=== PATIENT | female | born 1985 | race Caucasian/White ===

== ENCOUNTER 2016-10-05 09:58 | Emergency (ER) | payer MEDICAID, OTHER ==
[2016-10-05 11:30] LABS: DIFF SLIDE NUMBER 206; MEAN CORPUSCULAR HEMOGLOBIN 29.4 pg (27.0-33.0); MEAN CORPUSCULAR HGB CONC 33.7 g/dl (32.0-36.5); MEAN CORPUSCULAR VOLUME 87.4 fl (80.0-96.0); PLATELET COUNT, AUTOMATED 314 k/mm3 (150-450); RED CELL DISTRIBUTION WIDTH 13.5 % (11.5-14.5); WHITE BLOOD COUNT 13.5 K/mm3 (4.0-10.0)
[2016-10-05 11:42] LABS: CONTROL LINE MONO INT CTR LINE PRESENT
[2016-10-05 11:47] LABS: ALBUMIN 3.9 GM/DL (3.2-5.2); ALKALINE PHOSPHATASE 72 U/L (45-117); ALT/SGPT 13 U/L (12-78); ANION GAP 7 MEQ/L (8-16); AST/SGOT 8 U/L (15-37); BILIRUBIN,TOTAL 0.4 MG/DL (0.2-1.0); BLOOD UREA NITROGEN 13 MG/DL (7-18); CARBON DIOXIDE LEVEL 29 MEQ/L (21-32); CHLORIDE LEVEL 107 MEQ/L (98-107); CREATININE FOR GFR 0.85 MG/DL (0.55-1.02); GLOMERULAR FILTRATION RATE > 60.0 (>60); GLUCOSE, FASTING 91 MG/DL (70-105); POTASSIUM SERUM 4.2 MEQ/L (3.5-5.1); SODIUM LEVEL 143 MEQ/L (136-145); TOTAL PROTEIN 6.9 GM/DL (6.4-8.2)
[2016-10-05] MEDS ORDERED: ISOVUE-370 76% 100ML VIAL (Q9967) As Ordered ONE (11:49)
[2016-10-05 12:03] LABS: BASOPHILS 1 % (0-4); EOSINOPHILS 1 % (0-5)
[2016-10-05] MEDS ORDERED: AZITHROMYCIN 250 MG TAB As Ordered ONE (12:58)
--- NOTE | 2016-10-05 13:06 | EDDOCDS ---
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 Patient reports has been there hs1 since laryngitis possibly 3 months ago. Patient states increased cotton mouth and needing to drink a lot more. Adult Sepsis Screening: The patient does not have new or worsening altered mentation. Patient's respiratory rate is less than 22. Systolic blood pressure is greater than 100. Patient has a qSOFA score of 0- Negative Sepsis Screen. Suicide/Homicide risk assessment- the patient denies having any suicidal and/or homicidal ideations and does not present with any other emotional, behavioral or mental health complaints. 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 Transition of care: patient was not received from another setting of care. 10:03 Acuity: GABE Level 3 hs1 10:03 Method Of Arrival: Walkin/Carried/Asstd hs1 Triage Assessment: 10:05 General: Appears in no apparent distress, Behavior is appropriate for age, cooperative. hs1 Pain: Denies pain. HIV screening NA for this visit Offered previously. EENT: Denies difficulty swallowing. Respiratory: Airway is patent Respiratory effort is even, unlabored, Respiratory pattern is regular, symmetrical. Derm: Swollen area noted on right submandibular area. 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 none - PMHx: none; - PSHx: Appendectomy; - Social history: Smoking status: Patient uses tobacco products, heavy tobacco smoker. No barriers to communication noted, The patient speaks fluent Micronesian, Speaks appropriately for age. - Family history: Not pertinent. - : The pt / caregiver states he / she is not on anticoagulants. Home medication list is obtained from the patient. - Exposure Risk Screening:: None identified. Screenin:15 Screening information is obtained from the patient. Fall risk: No risks identified. mcp Assistance ADL's: requires no assistance with activities of daily living. Abuse/DV Screen: The patient / caregiver reports he/she is: not in a situation that causes fear, pain or injury. Nutritional screening: No deficits noted. Advance Directives: There is no active DNR order. home support is adequate. Assessment: 11:15 General: Appears uncomfortable, Behavior is cooperative. Pain: Location: neck Pain mcp currently is 3 out of 10 on a pain scale. Neurological: No deficits noted. Respiratory: Airway is patent Respiratory effort is even, unlabored. Derm: Skin is pink, warm & dry. 12:10 Reassessment: Patient appears in no apparent distress at this time. Neurological: No kr3 deficits noted. Respiratory: Respiratory effort is even, unlabored. 13:04 General: Appears in no apparent distress, comfortable, Behavior is cooperative. Pain: mcp Denies pain. Neurological: No deficits noted. Respiratory: Airway is patent Respiratory effort is even, unlabored. Derm: Skin is pink, warm & dry. Vital Signs: 10:00 BP 112 / 68; Pulse 81; Resp 18; Temp 97.6(O); Pulse Ox 99% on R/A; Weight 74.84 kg (M); ct3 Height 5 ft. 3 in. (160.02 cm) (R); Pain 0/10; 13:01 BP 123 / 71; Pulse 54; Resp 18; Temp 97.8; Pulse Ox 99% ; Pain 10/10; jam1 10:00 Body Mass Index 29.23 (74.84 kg, 160.02 cm) ct3 Vitals: 10:00 Log In Time: October 05, 2016 at 09:57. ct3 11:11 Strep Screen is obtained and tested: Negative, a GATSNEG culture is ordered in [facility] and sent. ED Course: 09:59 Patient visited by Sandy Nava PCA. ct3 09:59 Celestino Redding is Private Physician. ct3 09:59 Patient moved to Waiting ct3 10:01 Patient moved to Pre RCE ct3 10:05 Triage Initiated hs1 10:43 Patient moved to Triage 2 hs1 10:45 [facility] ef1 10:45 Rochelle Donis MD is Attending Physician. ef1 10:46 Patient visited by Karol Rodriguez PA-C. ef1 11:00 Patient moved to I5 / rs6 11:15 The patient / caregiver is instructed regarding the plan of care and ED course. Patient mcp has correct armband on for positive identification. Placed in gown. Bed in low position. Call light in reach. 11:16 Patient visited by Amparo Self RN. [facility] 11:16 Inserted saline lock: 20 gauge in left antecubital area and blood collected. The mcp patient tolerated the procedure well. Labs drawn. (by ED staff). Sent per order to lab. 11:16 Monoscreen Sent. [facility] 11:16 Mumps Virus Igm Antibody Sent. [facility] 11:16 Mumps Virus Igg Antibody Sent. [facility] 11:16 Complete Comphrensive Metabolic Sent. [facility] 11:16 CBC with Diff Sent. [facility] 11:24 [facility] Payment Agreement was scanned into [employer] and attached to record. jp5 11:52 Patient visited by Karol Rodriguez PA-C. ef1 12:24 DIFFERENTIAL NO CHARGE Sent. kr3 12:43 Patient visited by Karol Rodriguez PA-C. ef1 12:56 Junior Castro is Referral Physician. ef1 13:05 Discontinued lock intact, bleeding controlled, pressure dressing applied, No mcp redness/swelling at site. No procedures done that require assistance. Administered Medications: 13:04 Drug: azithromycin 500 mg [azithromycin 250 mg tablet (2 tabs)] Route: PO; [facility] Order Results: Lab Order: CBC with Diff; SPEC'M 10/05/16 11:12 Test: WHITE BLOOD COUNT; Value: 13.5; Range: 4.0-10.0; Abnormal: Above high normal; Units: K/mm3; Status: F Test: RED BLOOD COUNT; Value: 5.23; Range: 4.00-5.40; Units: M/mm3; Status: F Test: HEMOGLOBIN; Value: 15.4; Range: 12.0-16.0; Units: g/dl; Status: F Test: HEMATOCRIT; Value: 45.7; Range: 36.0-47.0; Units: %; Status: F Test: MEAN CORPUSCULAR VOLUME; Value: 87.4; Range: 80.0-96.0; Units: fl; Status: F Test: MEAN CORPUSCULAR HEMOGLOBIN; Value: 29.4; Range: 27.0-33.0; Units: pg; Status: F Test: MEAN CORPUSCULAR HGB CONC; Value: 33.7; Range: 32.0-36.5; Units: g/dl; Status: F Test: RED CELL DISTRIBUTION WIDTH; Value: 13.5; Range: 11.5-14.5; Units: %; Status: F Test: PLATELET COUNT, AUTOMATED; Value: 314; Range: 150-450; Units: k/mm3; Status: F Test: NEUTROPHILS; Value: 70; Range: 35-75; Units: %; Status: F Test: LYMPHOCYTES; Value: 16; Range: 16-52; Units: %; Status: F Test: MONOCYTES; Value: 3; Range: 0-8; Units: %; Status: F Test: EOSINOPHILS; Value: 1; Range: 0-5; Units: %; Status: F Test: BASOPHILS; Value: 1; Range: 0-4; Units: %; Status: F Test: ATYPICAL LYMPH; Value: 9; Range: 0-5; Abnormal: Above high normal; Units: %; Status: F Test: RBC MORPHOLOGY; Value: NORMAL; Status: F Lab Order: Complete Comphrensive Metabolic; SPEC'M 10/05/16 11:12 Test: GLUCOSE, FASTING; Value: 91; Range: 70-105; Units: MG/DL; Status: F Test: BLOOD UREA NITROGEN; Value: 13; Range: 7-18; Units: MG/DL; Status: F Test: CREATININE FOR GFR; Value: 0.85; Range: 0.55-1.02; Units: MG/DL; Status: F Test: GLOMERULAR FILTRATION RATE; Value: > 60.0; Range: >60; Status: F Test: SODIUM LEVEL; Value: 143; Range: 136-145; Units: MEQ/L; Status: F Test: POTASSIUM SERUM; Value: 4.2; Range: 3.5-5.1; Units: MEQ/L; Status: F Test: CHLORIDE LEVEL; Value: 107; Range: 98-107; Units: MEQ/L; Status: F Test: CARBON DIOXIDE LEVEL; Value: 29; Range: 21-32; Units: MEQ/L; Status: F Test: ANION GAP; Value: 7; Range: 8-16; Abnormal: Below low normal; Units: MEQ/L; Status: F Test: CALCIUM LEVEL; Value: 9.0; Range: 8.5-10.1; Units: MG/DL; Status: F Test: AST/SGOT; Value: 8; Range: 15-37; Abnormal: Below low normal; Units: U/L; Status: F Test: ALT/SGPT; Value: 13; Range: 12-78; Units: U/L; Status: F Test: ALKALINE PHOSPHATASE; Value: 72; Range: 45-117; Units: U/L; Status: F Test: BILIRUBIN,TOTAL; Value: 0.4; Range: 0.2-1.0; Units: MG/DL; Status: F Test: TOTAL PROTEIN; Value: 6.9; Range: 6.4-8.2; Units: GM/DL; Status: F Test: ALBUMIN; Value: 3.9; Range: 3.2-5.2; Units: GM/DL; Status: F Test: ALBUMIN/GLOBULIN RATIO; Value: 1.30; Range: 1.00-1.93; Status: F Test Note: ; Units are mL/min/1.73 m2 Chronic Kidney Disease Staging per NKF: Stage I & II GFR >=60 Normal to Mildly Decreased Stage III GFR 30-59 Moderately Decreased Stage IV GFR 15-29 Severely Decreased Stage V GFR <15 Very Little GFR Left ESRD GFR <15 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 kr3 12:56 Discharge ordered by Provider. ef1 13:05 Discharge Assessment: Patient awake, alert and oriented x 3. No cognitive and/or mcp functional deficits noted. Patient verbalized understanding of disposition instructions. patient administered narcotics - no. The following High Risk Discharge criteria are identified: None. Discharged to home ambulatory. Condition: stable. Discharge instructions given to patient, Instructed on discharge instructions, follow up and referral plans. medication usage, Demonstrated understanding of instructions, medications, Pt was receptive of discharge instructions/ teaching. Prescriptions given X 2. Property sent home with patient. 13:05 Patient left the ED. [facility] Signatures: Amparo Self RN RN Lisa Machado, LABORER LIVESTOCK LABORER LIVESTOCK jam1 Tootie Joseph,RN RN kr3 Karol Rodriguez, PA-C PA-C ef1 Elvie Cordoba RN RN hs1 Sandy Nava, LABORER LIVESTOCK LABORER LIVESTOCK ct3 Edith Singh, LABORER LIVESTOCK LABORER LIVESTOCK rs6 Nano Harvey jp5 MTDD
--- NOTE | 2016-10-05 13:06 | EDDOCDS ---
Physician Documentation [facility] Name: Marga Trujillo Age: 31 yrs Sex: Female : 1985 Arrival Date: 10/05/2016 Time: 09:58 Bed I5 / M5 Private MD: Celestino Redding Disposition: 10/05/16 12:56 Discharged to Home/Self Care. 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 - Condition is Stable. - Prescriptions for Ibuprofen 800 mg Oral Tablet - take 1 tablet by ORAL route every 8 hours As needed take with food; 30 tablet. Zithromax 250 mg Oral Tablet - take 1 tablet by ORAL route once daily start tomorrow; 4 tablet. - Medication Reconciliation, Local Pharmacy Hours form. - Follow up: Junior Castro; When: 1 - 2 days; Reason: Further diagnostic work-up, Recheck today's complaints, Continuance of care. Follow up: Emergency Department; Reason: Worsening of conditions. - Problem is new. - Symptoms have improved. Historical: - Allergies: Keflexunsure; PENICILLINS (Swelling); - Home Meds: 1. none - PMHx: none; - PSHx: Appendectomy; - Social history: Smoking status: Patient uses tobacco products, heavy tobacco smoker. No barriers to communication noted, The patient speaks fluent Togolese, Speaks appropriately for age. - Family history: Not pertinent. - : The pt / caregiver states he / she is not on anticoagulants. Home medication list is obtained from the patient. - Exposure Risk Screening:: None identified. 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 3 in. (160.02 cm) (R); Pain 0/10; 13:01 BP 123 / 71; Pulse 54; Resp 18; Temp 97.8; Pulse Ox 99% ; Pain 10/10; jam1 10:00 Body Mass Index 29.23 (74.84 kg, 160.02 cm) ct3 MDM: 10:45 Strep Screen, Nursing ordered. ef1 10:54 IV Saline Lock ordered. ef1 10:55 CBC with Diff Ordered. EDMS 10:55 Complete Comphrensive Metabolic Ordered. EDMS 10:55 CT Neck With Contrast Ordered. EDMS 10:57 Mumps Virus Igg Antibody Ordered. EDMS 10:57 Mumps Virus Igm Antibody Ordered. EDMS 11:01 Monoscreen Ordered. EDMS 11:12 GATS (NEGATIVE STREP SCREEN) Ordered. EDMS 11:24 [facility] Payment Agreement was scanned into [employer] and attached to record. jp5 11:24 Financial registration complete. jp5 11:52 Complete Comphrensive Metabolic Reviewed. ef1 11:52 Monoscreen Reviewed. ef1 12:02 DIFFERENTIAL NO CHARGE Ordered. EDMS 12:02 PLATELET ESTIMATE Ordered. EDMS 12:43 CBC with Diff Reviewed. ef1 12:43 PLATELET ESTIMATE Reviewed. ef1 12:57 azithromycin 500 mg PO once ordered. ef1 Administered Medications: 13:04 Drug: azithromycin 500 mg [azithromycin 250 mg tablet (2 tabs)] Route: PO; [facility] Signatures: Dispatcher [employer] EDSC Amparo Self RN RN mcp Robie, Kathleen, RN RN kr3 Karol Rodriguez PA-C PA-Chai ef1 Elvie Cordoba, RN RN 1 Nano Harvey jp5 The chart was reviewed and I authenticate all verbal orders and agree with the evaluation and treatment provided.Attachments: 11:24 [facility] Payment Agreement jp5 MTDD
--- NOTE | 2016-10-05 16:30 | REP ---
CT NECK WITH CONTRAST: HISTORY: Neck swelling. CONTRAST: Isovue 370, 75 mL. The naso-, lawanda- and hypopharynx, larynx and subglottic trachea are normal in appearance. A cystic mass is present in the posterior posterior submandibular space. The cyst is lateral to the right internal and external carotid arteries and internal jugular vein and anteromedial to the right sternocleidomastoid muscle. The cystic mass measures 2.7 cm in transverse by 3 cm in AP x 3.3 cm in cephalocaudal dimensions. There is mass effect on the adjacent right submandibular gland, right internal and external carotid arteries and right internal jugular vein and right sternocleidomastoid muscle. The surrounding tissue planes are intact. The parotid, left submandibular and thyroid glands are normal. Small lymph nodes, less than 1 cm in size are present in the posterior triangles, left internal jugular chain, submandibular and submental areas. The lung apices are clear. The visualized sinuses are clear. IMPRESSION: There is a cystic right neck mass in the posterior right submandibular space as described above. This most likely represents a second brachial cleft cyst and less likely a necrotic lymph node. Signed by Sim Reddy MD 10/05/2016 04:33 P
[2016-10-07 00:06] LABS: MUMPS VIRUS IgM ANTIBODY <0.80 AU (0.00-0.79)
--- NOTE | 2016-10-07 14:06 | EDDOCDS ---
Physician Documentation [facility] Name: Marga Trujillo Age: 31 yrs Sex: Female : 1985 Arrival Date: 10/05/2016 Time: 09:58 Bed I5 / M5 Private MD: Celestino Redding Disposition: 10/05/16 12:56 Discharged to Home/Self Care. 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 - Condition is Stable. - Prescriptions for Ibuprofen 800 mg Oral Tablet - take 1 tablet by ORAL route every 8 hours As needed take with food; 30 tablet. Zithromax 250 mg Oral Tablet - take 1 tablet by ORAL route once daily start tomorrow; 4 tablet. - Medication Reconciliation, Local Pharmacy Hours form. - Follow up: Junior Castro; When: 1 - 2 days; Reason: Further diagnostic work-up, Recheck today's complaints, Continuance of care. Follow up: Emergency Department; Reason: Worsening of conditions. - Problem is new. - Symptoms have improved. Historical: - Allergies: Keflexunsure; PENICILLINS (Swelling); - Home Meds: 1. none - PMHx: none; - PSHx: Appendectomy; - Social history: Smoking status: Patient uses tobacco products, heavy tobacco smoker. No barriers to communication noted, The patient speaks fluent Qatari, Speaks appropriately for age. - Family history: Not pertinent. - : The pt / caregiver states he / she is not on anticoagulants. Home medication list is obtained from the patient. - Exposure Risk Screening:: None identified. 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 3 in. (160.02 cm) (R); Pain 0/10; 13:01 BP 123 / 71; Pulse 54; Resp 18; Temp 97.8; Pulse Ox 99% ; Pain 10/10; jam1 10:00 Body Mass Index 29.23 (74.84 kg, 160.02 cm) ct3 MDM: 10:45 Strep Screen, Nursing ordered. ef1 10:54 IV Saline Lock ordered. ef1 10:55 CBC with Diff Ordered. EDMS 10:55 Complete Comphrensive Metabolic Ordered. EDMS 10:55 CT Neck With Contrast Ordered. EDMS 10:57 Mumps Virus Igg Antibody Ordered. EDMS 10:57 Mumps Virus Igm Antibody Ordered. EDMS 11:01 Monoscreen Ordered. EDMS 11:12 GATS (NEGATIVE STREP SCREEN) Ordered. EDMS 11:24 [facility] Payment Agreement was scanned into [employer] and attached to record. jp5 11:24 Financial registration complete. jp5 11:52 Complete Comphrensive Metabolic Reviewed. ef1 11:52 Monoscreen Reviewed. ef1 12:02 DIFFERENTIAL NO CHARGE Ordered. EDMS 12:02 PLATELET ESTIMATE Ordered. EDMS 12:43 CBC with Diff Reviewed. ef1 12:43 PLATELET ESTIMATE Reviewed. ef1 12:57 azithromycin 500 mg PO once ordered. ef1 14:50 T-Sheet-- Draft Copy was scanned into [employer] and attached to record. gb 14:51 Radiology Report was scanned into [employer] and attached to record. gb Administered Medications: 13:04 Drug: azithromycin 500 mg [azithromycin 250 mg tablet (2 tabs)] Route: PO; [facility] Signatures: Dispatcher [employer] Amparo Sheridan, SHREYAS PRITCHETT [facility] Ignacia Hester, Carlos Gonzalez Tootie Joseph RN RN kr3 Karol Rodriguez, PA-C PA-C ef1 Elvie Cordoba, RN RN 1 Nano Harvey jp5 The chart was reviewed and I authenticate all verbal orders and agree with the evaluation and treatment provided.Attachments: 11:24 [facility] Payment Agreement jp5 14:50 T-Sheet-- Draft Copy gb Chart Complete MTDD
--- NOTE | 2016-10-07 14:06 | EDDOCDS ---
Physician Documentation [facility] Name: Marga Trujillo Age: 31 yrs Sex: Female : 1985 Arrival Date: 10/05/2016 Time: 09:58 Bed I5 / M5 Private MD: Celestino Redding Disposition: 10/05/16 12:56 Discharged to Home/Self Care. 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 - Condition is Stable. - Prescriptions for Ibuprofen 800 mg Oral Tablet - take 1 tablet by ORAL route every 8 hours As needed take with food; 30 tablet. Zithromax 250 mg Oral Tablet - take 1 tablet by ORAL route once daily start tomorrow; 4 tablet. - Medication Reconciliation, Local Pharmacy Hours form. - Follow up: Junior Castro; When: 1 - 2 days; Reason: Further diagnostic work-up, Recheck today's complaints, Continuance of care. Follow up: Emergency Department; Reason: Worsening of conditions. - Problem is new. - Symptoms have improved. Historical: - Allergies: Keflexunsure; PENICILLINS (Swelling); - Home Meds: 1. none - PMHx: none; - PSHx: Appendectomy; - Social history: Smoking status: Patient uses tobacco products, heavy tobacco smoker. No barriers to communication noted, The patient speaks fluent Stateless, Speaks appropriately for age. - Family history: Not pertinent. - : The pt / caregiver states he / she is not on anticoagulants. Home medication list is obtained from the patient. - Exposure Risk Screening:: None identified. 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 3 in. (160.02 cm) (R); Pain 0/10; 13:01 BP 123 / 71; Pulse 54; Resp 18; Temp 97.8; Pulse Ox 99% ; Pain 10/10; jam1 10:00 Body Mass Index 29.23 (74.84 kg, 160.02 cm) ct3 MDM: 10:45 Strep Screen, Nursing ordered. ef1 10:54 IV Saline Lock ordered. ef1 10:55 CBC with Diff Ordered. EDMS 10:55 Complete Comphrensive Metabolic Ordered. EDMS 10:55 CT Neck With Contrast Ordered. EDMS 10:57 Mumps Virus Igg Antibody Ordered. EDMS 10:57 Mumps Virus Igm Antibody Ordered. EDMS 11:01 Monoscreen Ordered. EDMS 11:12 GATS (NEGATIVE STREP SCREEN) Ordered. EDMS 11:24 [facility] Payment Agreement was scanned into [employer] and attached to record. jp5 11:24 Financial registration complete. jp5 11:52 Complete Comphrensive Metabolic Reviewed. ef1 11:52 Monoscreen Reviewed. ef1 12:02 DIFFERENTIAL NO CHARGE Ordered. EDMS 12:02 PLATELET ESTIMATE Ordered. EDMS 12:43 CBC with Diff Reviewed. ef1 12:43 PLATELET ESTIMATE Reviewed. ef1 12:57 azithromycin 500 mg PO once ordered. ef1 14:50 T-Sheet-- Draft Copy was scanned into [employer] and attached to record. gb 14:51 Radiology Report was scanned into [employer] and attached to record. gb Administered Medications: 13:04 Drug: azithromycin 500 mg [azithromycin 250 mg tablet (2 tabs)] Route: PO; [facility] Signatures: Dispatcher [employer] Amparo Sheridan, SHREYAS PRITCHETT [facility] Ignacia Hester, Carlos Gonzalez Tootie Joseph RN RN kr3 Karol Rodriguez, PA-C PA-C ef1 Elvie Cordoba, RN RN 1 Nano Harvey jp5 The chart was reviewed and I authenticate all verbal orders and agree with the evaluation and treatment provided.Attachments: 11:24 [facility] Payment Agreement jp5 14:50 T-Sheet-- Draft Copy gb Chart Complete MTDD
--- NOTE | 2016-10-07 14:06 | EDDOCDS ---
Nurse's Notes 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 Patient reports has been there hs1 since laryngitis possibly 3 months ago. Patient states increased cotton mouth and needing to drink a lot more. Adult Sepsis Screening: The patient does not have new or worsening altered mentation. Patient's respiratory rate is less than 22. Systolic blood pressure is greater than 100. Patient has a qSOFA score of 0- Negative Sepsis Screen. Suicide/Homicide risk assessment- the patient denies having any suicidal and/or homicidal ideations and does not present with any other emotional, behavioral or mental health complaints. 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 Transition of care: patient was not received from another setting of care. 10:03 Acuity: GABE Level 3 hs1 10:03 Method Of Arrival: Walkin/Carried/Asstd hs1 Triage Assessment: 10:05 General: Appears in no apparent distress, Behavior is appropriate for age, cooperative. hs1 Pain: Denies pain. HIV screening NA for this visit Offered previously. EENT: Denies difficulty swallowing. Respiratory: Airway is patent Respiratory effort is even, unlabored, Respiratory pattern is regular, symmetrical. Derm: Swollen area noted on right submandibular area. BRYOLOGIST: 10:05 LMP 09/30/2016 hs1 Historical: - Allergies: Keflexunsure; PENICILLINS (Swelling); - Home Meds: 1. none - PMHx: none; - PSHx: Appendectomy; - Social history: Smoking status: Patient uses tobacco products, heavy tobacco smoker. No barriers to communication noted, The patient speaks fluent Somali, Speaks appropriately for age. - Family history: Not pertinent. - : The pt / caregiver states he / she is not on anticoagulants. Home medication list is obtained from the patient. - Exposure Risk Screening:: None identified. Screenin:15 Screening information is obtained from the patient. Fall risk: No risks identified. mcp Assistance ADL's: requires no assistance with activities of daily living. Abuse/DV Screen: The patient / caregiver reports he/she is: not in a situation that causes fear, pain or injury. Nutritional screening: No deficits noted. Advance Directives: There is no active DNR order. home support is adequate. Assessment: 11:15 General: Appears uncomfortable, Behavior is cooperative. Pain: Location: neck Pain mcp currently is 3 out of 10 on a pain scale. Neurological: No deficits noted. Respiratory: Airway is patent Respiratory effort is even, unlabored. Derm: Skin is pink, warm & dry. 12:10 Reassessment: Patient appears in no apparent distress at this time. Neurological: No kr3 deficits noted. Respiratory: Respiratory effort is even, unlabored. 13:04 General: Appears in no apparent distress, comfortable, Behavior is cooperative. Pain: mcp Denies pain. Neurological: No deficits noted. Respiratory: Airway is patent Respiratory effort is even, unlabored. Derm: Skin is pink, warm & dry. Vital Signs: 10:00 BP 112 / 68; Pulse 81; Resp 18; Temp 97.6(O); Pulse Ox 99% on R/A; Weight 74.84 kg (M); ct3 Height 5 ft. 3 in. (160.02 cm) (R); Pain 0/10; 13:01 BP 123 / 71; Pulse 54; Resp 18; Temp 97.8; Pulse Ox 99% ; Pain 10/10; jam1 10:00 Body Mass Index 29.23 (74.84 kg, 160.02 cm) ct3 Vitals: 10:00 Log In Time: October 05, 2016 at 09:57. ct3 11:11 Strep Screen is obtained and tested: Negative, a GATSNEG culture is ordered in [facility] and sent. ED Course: 09:59 Patient visited by Sandy Nava PCA. ct3 09:59 Celestino Redding is Private Physician. ct3 09:59 Patient moved to Waiting ct3 10:01 Patient moved to Pre RCE ct3 10:05 Triage Initiated hs1 10:43 Patient moved to Triage 2 hs1 10:45 [facility] Rodriguez [facility] ef1 10:45 Rochelle Donis MD is Attending Physician. ef1 10:46 Patient visited by Karol Rodriguez PA-C. ef1 11:00 Patient moved to I5 / rs6 11:15 The patient / caregiver is instructed regarding the plan of care and ED course. Patient mcp has correct armband on for positive identification. Placed in gown. Bed in low position. Call light in reach. 11:16 Patient visited by Amparo Self RN. [facility] 11:16 Inserted saline lock: 20 gauge in left antecubital area and blood collected. The mcp patient tolerated the procedure well. Labs drawn. (by ED staff). Sent per order to lab. 11:16 Monoscreen Sent. mcp 11:16 Mumps Virus Igm Antibody Sent. [facility] 11:16 Mumps Virus Igg Antibody Sent. [facility] 11:16 Complete Comphrensive Metabolic Sent. [facility] 11:16 CBC with Diff Sent. [facility] 11:24 [facility] Payment Agreement was scanned into [employer] and attached to record. jp5 11:52 Patient visited by Karol Rodriguez PA-C. ef1 12:24 DIFFERENTIAL NO CHARGE Sent. kr3 12:43 Patient visited by Karol Rodriguez PA-C. ef1 12:56 Junior Castro is Referral Physician. ef1 13:05 Discontinued lock intact, bleeding controlled, pressure dressing applied, No mcp redness/swelling at site. No procedures done that require assistance. 14:50 T-Sheet-- Draft Copy was scanned into [employer] and attached to record. gb 14:51 Radiology Report was scanned into [employer] and attached to record. gb 17:15 CT Neck With Contrast Returned. EDMS Administered Medications: 13:04 Drug: azithromycin 500 mg [azithromycin 250 mg tablet (2 tabs)] Route: PO; mcp Order Results: Lab Order: CBC with Diff; SPEC'M 10/05/16 11:12 Test: WHITE BLOOD COUNT; Value: 13.5; Range: 4.0-10.0; Abnormal: Above high normal; Units: K/mm3; Status: F Test: RED BLOOD COUNT; Value: 5.23; Range: 4.00-5.40; Units: M/mm3; Status: F Test: HEMOGLOBIN; Value: 15.4; Range: 12.0-16.0; Units: g/dl; Status: F Test: HEMATOCRIT; Value: 45.7; Range: 36.0-47.0; Units: %; Status: F Test: MEAN CORPUSCULAR VOLUME; Value: 87.4; Range: 80.0-96.0; Units: fl; Status: F Test: MEAN CORPUSCULAR HEMOGLOBIN; Value: 29.4; Range: 27.0-33.0; Units: pg; Status: F Test: MEAN CORPUSCULAR HGB CONC; Value: 33.7; Range: 32.0-36.5; Units: g/dl; Status: F Test: RED CELL DISTRIBUTION WIDTH; Value: 13.5; Range: 11.5-14.5; Units: %; Status: F Test: PLATELET COUNT, AUTOMATED; Value: 314; Range: 150-450; Units: k/mm3; Status: F Test: NEUTROPHILS; Value: 70; Range: 35-75; Units: %; Status: F Test: LYMPHOCYTES; Value: 16; Range: 16-52; Units: %; Status: F Test: MONOCYTES; Value: 3; Range: 0-8; Units: %; Status: F Test: EOSINOPHILS; Value: 1; Range: 0-5; Units: %; Status: F Test: BASOPHILS; Value: 1; Range: 0-4; Units: %; Status: F Test: ATYPICAL LYMPH; Value: 9; Range: 0-5; Abnormal: Above high normal; Units: %; Status: F Test: RBC MORPHOLOGY; Value: NORMAL; Status: F Lab Order: Complete Comphrensive Metabolic; SPEC'M 10/05/16 11:12 Test: GLUCOSE, FASTING; Value: 91; Range: 70-105; Units: MG/DL; Status: F Test: BLOOD UREA NITROGEN; Value: 13; Range: 7-18; Units: MG/DL; Status: F Test: CREATININE FOR GFR; Value: 0.85; Range: 0.55-1.02; Units: MG/DL; Status: F Test: GLOMERULAR FILTRATION RATE; Value: > 60.0; Range: >60; Status: F Test: SODIUM LEVEL; Value: 143; Range: 136-145; Units: MEQ/L; Status: F Test: POTASSIUM SERUM; Value: 4.2; Range: 3.5-5.1; Units: MEQ/L; Status: F Test: CHLORIDE LEVEL; Value: 107; Range: 98-107; Units: MEQ/L; Status: F Test: CARBON DIOXIDE LEVEL; Value: 29; Range: 21-32; Units: MEQ/L; Status: F Test: ANION GAP; Value: 7; Range: 8-16; Abnormal: Below low normal; Units: MEQ/L; Status: F Test: CALCIUM LEVEL; Value: 9.0; Range: 8.5-10.1; Units: MG/DL; Status: F Test: AST/SGOT; Value: 8; Range: 15-37; Abnormal: Below low normal; Units: U/L; Status: F Test: ALT/SGPT; Value: 13; Range: 12-78; Units: U/L; Status: F Test: ALKALINE PHOSPHATASE; Value: 72; Range: 45-117; Units: U/L; Status: F Test: BILIRUBIN,TOTAL; Value: 0.4; Range: 0.2-1.0; Units: MG/DL; Status: F Test: TOTAL PROTEIN; Value: 6.9; Range: 6.4-8.2; Units: GM/DL; Status: F Test: ALBUMIN; Value: 3.9; Range: 3.2-5.2; Units: GM/DL; Status: F Test: ALBUMIN/GLOBULIN RATIO; Value: 1.30; Range: 1.00-1.93; Status: F Test Note: ; Units are mL/min/1.73 m2 Chronic Kidney Disease Staging per NKF: Stage I & II GFR >=60 Normal to Mildly Decreased Stage III GFR 30-59 Moderately Decreased Stage IV GFR 15-29 Severely Decreased Stage V GFR <15 Very Little GFR Left ESRD GFR <15 on [facility] Lab Order: Mumps Virus Igg Antibody; SPEC'M 10/05/16 11:12 Test: MUMPS VIRUS IgG ANTIBODY; Value: 225.0; Range: Immune >10.9; Units: AU/mL; Status: F Test Note: ; Negative <9.0 Equivocal 9.0 - 10.9 Positive >10.9 A positive result generally indicates past exposure to Mumps virus or previous vaccination. Lab Order: Mumps Virus Igm Antibody; SPEC'M 01/10/17 11:12 Test: MUMPS VIRUS IgM ANTIBODY; Value: <0.80; Range: 0.00-0.79; Units: AU; Status: F Test Note: ; Negative < 0.80 Borderline 0.80 - 1.20 Positive > 1.20 . Note: The presence of IgM specific antibody should be interpreted in conjunction with the patient's clinical history and exposure risk when an acute infection is suspected. Performed at: [facility] [id number] Chair Caner: Katt Coyle MD, Phone: [phone] Performed at: [facility] [id number] Chair Caner: Delvis Doran MD, Phone: [phone] Lab Order: Monoscreen; SPEC'M 10/05/16 11:12 Test: MONO SCRN; Value: NEGATIVE; Range: NEGATIVE; Status: F Lab Order: GATS (NEGATIVE STREP SCREEN); SPEC'M 10/05/16 11:07 Test: GATS CULTURE (NEG STREP SCR); Value: GATS RESULT POSITIVE FOR STREP PYOGENES (GROUP A); Abnormal: Abnormal; Status: F Test: GATS CULTURE (NEG STREP SCR); Value: ORGANISM 1: STREPTOCOCCUS PYOGENES GRP A; Status: F Test: GATS CULTURE (NEG STREP SCR); Value: STREPTOCOCCUS PYOGENES GRP A; Status: F Test: GATS CULTURE (NEG STREP SCR); Value: QUANTITY OF GROWTH MODERATE; Status: F Lab Order: PLATELET ESTIMATE; SPEC'M 10/05/16 11:12 Test: PLATELET ESTIMATE; Value: NORMAL; Range: NORMAL; Status: F Radiology Order: CT Neck With Contrast Test: CT Neck With Contrast REASON FOR EXAMINATION: Deformity/Swelling; CT NECK WITH CONTRAST:; ; HISTORY: Neck swelling.; ; CONTRAST: Isovue 370, 75 mL.; ; The naso-, lawanda- and hypopharynx, larynx and subglottic trachea are normal in; appearance. A cystic mass is present in the posterior posterior submandibular; space. The cyst is lateral to the right internal and external carotid arteries; and internal jugular vein and anteromedial to the right sternocleidomastoid; muscle. The cystic mass measures 2.7 cm in transverse by 3 cm in AP x 3.3 cm in; cephalocaudal dimensions. There is mass effect on the adjacent right; submandibular gland, right internal and external carotid arteries and right; internal jugular vein and right sternocleidomastoid muscle. The surrounding; tissue planes are intact. The parotid, left submandibular and thyroid glands are; normal. Small lymph nodes, less than 1 cm in size are present in the posterior; triangles, left internal jugular chain, submandibular and submental areas. The; lung apices are clear. The visualized sinuses are clear.; ; IMPRESSION:; ; There is a cystic right neck mass in the posterior right submandibular space as; described above. 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 kr3 12:56 Discharge ordered by Provider. ef1 13:05 Discharge Assessment: Patient awake, alert and oriented x 3. No cognitive and/or mcp functional deficits noted. Patient verbalized understanding of disposition instructions. patient administered narcotics - no. The following High Risk Discharge criteria are identified: None. Discharged to home ambulatory. Condition: stable. Discharge instructions given to patient, Instructed on discharge instructions, follow up and referral plans. medication usage, Demonstrated understanding of instructions, medications, Pt was receptive of discharge instructions/ teaching. Prescriptions given X 2. Property sent home with patient. 13:05 Patient left the ED. [facility] Signatures: Dispatcher [employer] EDMS Amparo Self RN RN mcp Murphy, Jane, DIRECTOR OF ACCREDITATION DIRECTOR OF ACCREDITATION jam1 Ignacia Hester, Tootie Caceres RN RN kr3 Karol Rodriguez, PA-C PA-C ef1 Elvie Cordoba RN RN hs1 Sandy Nava, DIRECTOR OF ACCREDITATION DIRECTOR OF ACCREDITATION ct3 Edith Singh, DIRECTOR OF ACCREDITATION DIRECTOR OF ACCREDITATION rs6 Nano Harvey jp5 Chart Complete MTDD
--- NOTE | 2016-10-08 10:11 | EDDOCDS ---
Physician Documentation [facility] Name: Marga Trujillo Age: 31 yrs Sex: Female : 1985 Arrival Date: 10/05/2016 Time: 09:58 Bed I5 / M5 Private MD: Celestino Redding Disposition: 10/05/16 12:56 Discharged to Home/Self Care. 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 - Condition is Stable. - Prescriptions for Ibuprofen 800 mg Oral Tablet - take 1 tablet by ORAL route every 8 hours As needed take with food; 30 tablet. Zithromax 250 mg Oral Tablet - take 1 tablet by ORAL route once daily start tomorrow; 4 tablet. - Medication Reconciliation, Local Pharmacy Hours form. - Follow up: Junior Castro; When: 1 - 2 days; Reason: Further diagnostic work-up, Recheck today's complaints, Continuance of care. Follow up: Emergency Department; Reason: Worsening of conditions. - Problem is new. - Symptoms have improved. Historical: - Allergies: Keflexunsure; PENICILLINS (Swelling); - Home Meds: 1. none - PMHx: none; - PSHx: Appendectomy; - Social history: Smoking status: Patient uses tobacco products, heavy tobacco smoker. No barriers to communication noted, The patient speaks fluent Venezuelan, Speaks appropriately for age. - Family history: Not pertinent. - : The pt / caregiver states he / she is not on anticoagulants. Home medication list is obtained from the patient. - Exposure Risk Screening:: None identified. CYBER SECURITY: 10/05 10:05 LMP 09/30/2016 hs1 Vital Signs: 10:00 BP 112 / 68; Pulse 81; Resp 18; Temp 97.6(O); Pulse Ox 99% on R/A; Weight 74.84 kg / ct3 164.99 lbs (M); Height 5 ft. 3 in. (160.02 cm) (R); Pain 0/10; 13:01 BP 123 / 71; Pulse 54; Resp 18; Temp 97.8; Pulse Ox 99% ; Pain 10/10; jam1 10:00 Body Mass Index 29.23 (74.84 kg, 160.02 cm) ct3 MDM: 10:45 Strep Screen, Nursing ordered. ef1 10:54 IV Saline Lock ordered. ef1 10:55 CBC with Diff Ordered. EDMS 10:55 Complete Comphrensive Metabolic Ordered. EDMS 10:55 CT Neck With Contrast Ordered. EDMS 10:57 Mumps Virus Igg Antibody Ordered. EDMS 10:57 Mumps Virus Igm Antibody Ordered. EDMS 11:01 Monoscreen Ordered. EDMS 11:12 GATS (NEGATIVE STREP SCREEN) Ordered. EDMS 11:24 [facility] Payment Agreement was scanned into [employer] and attached to record. jp5 11:24 Financial registration complete. jp5 11:52 Complete Comphrensive Metabolic Reviewed. ef1 11:52 Monoscreen Reviewed. ef1 12:02 DIFFERENTIAL NO CHARGE Ordered. EDMS 12:02 PLATELET ESTIMATE Ordered. EDMS 12:43 CBC with Diff Reviewed. ef1 12:43 PLATELET ESTIMATE Reviewed. ef1 12:57 azithromycin 500 mg PO once ordered. ef1 14:50 T-Sheet-- Draft Copy was scanned into [employer] and attached to record. gb 14:51 Radiology Report was scanned into [employer] and attached to record. gb Administered Medications: 13:04 Drug: azithromycin 500 mg [azithromycin 250 mg tablet (2 tabs)] Route: PO; [facility] Signatures: Dispatcher [employer] Amparo Sheridan, SHREYAS PRITCHETT [facility] Ignacia Hester, Carlos Gonzalez Tootie Joseph RN RN kr3 Karol Rodriguez, PA-C PA-C ef1 Elvie Cordoba, RN RN 1 Nano Harvey jp5 The chart was reviewed and I authenticate all verbal orders and agree with the evaluation and treatment provided.Attachments: 11:24 [facility] Payment Agreement jp5 14:50 T-Sheet-- Draft Copy gb MTDD
--- NOTE | 2016-10-08 10:11 | EDDOCDS ---
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 Patient reports has been there hs1 since laryngitis possibly 3 months ago. Patient states increased cotton mouth and needing to drink a lot more. Adult Sepsis Screening: The patient does not have new or worsening altered mentation. Patient's respiratory rate is less than 22. Systolic blood pressure is greater than 100. Patient has a qSOFA score of 0- Negative Sepsis Screen. Suicide/Homicide risk assessment- the patient denies having any suicidal and/or homicidal ideations and does not present with any other emotional, behavioral or mental health complaints. 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 Transition of care: patient was not received from another setting of care. 10:03 Acuity: GABE Level 3 hs1 10:03 Method Of Arrival: Walkin/Carried/Asstd hs1 Triage Assessment: 10:05 General: Appears in no apparent distress, Behavior is appropriate for age, cooperative. hs1 Pain: Denies pain. HIV screening NA for this visit Offered previously. EENT: Denies difficulty swallowing. Respiratory: Airway is patent Respiratory effort is even, unlabored, Respiratory pattern is regular, symmetrical. Derm: Swollen area noted on right submandibular area. 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 none - PMHx: none; - PSHx: Appendectomy; - Social history: Smoking status: Patient uses tobacco products, heavy tobacco smoker. No barriers to communication noted, The patient speaks fluent Austrian, Speaks appropriately for age. - Family history: Not pertinent. - : The pt / caregiver states he / she is not on anticoagulants. Home medication list is obtained from the patient. - Exposure Risk Screening:: None identified. Screenin:15 Screening information is obtained from the patient. Fall risk: No risks identified. mcp Assistance ADL's: requires no assistance with activities of daily living. Abuse/DV Screen: The patient / caregiver reports he/she is: not in a situation that causes fear, pain or injury. Nutritional screening: No deficits noted. Advance Directives: There is no active DNR order. home support is adequate. Assessment: 11:15 General: Appears uncomfortable, Behavior is cooperative. Pain: Location: neck Pain mcp currently is 3 out of 10 on a pain scale. Neurological: No deficits noted. Respiratory: Airway is patent Respiratory effort is even, unlabored. Derm: Skin is pink, warm & dry. 12:10 Reassessment: Patient appears in no apparent distress at this time. Neurological: No kr3 deficits noted. Respiratory: Respiratory effort is even, unlabored. 13:04 General: Appears in no apparent distress, comfortable, Behavior is cooperative. Pain: mcp Denies pain. Neurological: No deficits noted. Respiratory: Airway is patent Respiratory effort is even, unlabored. Derm: Skin is pink, warm & dry. Vital Signs: 10:00 BP 112 / 68; Pulse 81; Resp 18; Temp 97.6(O); Pulse Ox 99% on R/A; Weight 74.84 kg (M); ct3 Height 5 ft. 3 in. (160.02 cm) (R); Pain 0/10; 13:01 BP 123 / 71; Pulse 54; Resp 18; Temp 97.8; Pulse Ox 99% ; Pain 10/10; jam1 10:00 Body Mass Index 29.23 (74.84 kg, 160.02 cm) ct3 Vitals: 10:00 Log In Time: October 05, 2016 at 09:57. ct3 11:11 Strep Screen is obtained and tested: Negative, a GATSNEG culture is ordered in [facility] and sent. ED Course: 09:59 Patient visited by Sandy Nava PCA. ct3 09:59 Celestino Redding is Private Physician. ct3 09:59 Patient moved to Waiting ct3 10:01 Patient moved to Pre RCE ct3 10:05 Triage Initiated hs1 10:43 Patient moved to Triage 2 hs1 10:45 [facility] ef1 10:45 Rochelle Donis MD is Attending Physician. ef1 10:46 Patient visited by Karol Rodriguez PA-C. ef1 11:00 Patient moved to I5 / rs6 11:15 The patient / caregiver is instructed regarding the plan of care and ED course. Patient mcp has correct armband on for positive identification. Placed in gown. Bed in low position. Call light in reach. 11:16 Patient visited by Amparo Self RN. [facility] 11:16 Inserted saline lock: 20 gauge in left antecubital area and blood collected. The mcp patient tolerated the procedure well. Labs drawn. (by ED staff). Sent per order to lab. 11:16 Monoscreen Sent. mcp 11:16 Mumps Virus Igm Antibody Sent. [facility] 11:16 Mumps Virus Igg Antibody Sent. [facility] 11:16 Complete Comphrensive Metabolic Sent. [facility] 11:16 CBC with Diff Sent. [facility] 11:24 [place]-[facility] [place] Payment Agreement was scanned into [employer] and attached to record. jp5 11:52 Patient visited by Karol Rodriguez PA-C. ef1 12:24 DIFFERENTIAL NO CHARGE Sent. kr3 12:43 Patient visited by Karol Rodriguez PA-C. ef1 12:56 Junior Castro is Referral Physician. ef1 13:05 Discontinued lock intact, bleeding controlled, pressure dressing applied, No mcp redness/swelling at site. No procedures done that require assistance. 14:50 T-Sheet-- Draft Copy was scanned into [employer] and attached to record. gb 14:51 Radiology Report was scanned into [employer] and attached to record. gb 17:15 CT Neck With Contrast Returned. EDMS Administered Medications: 13:04 Drug: azithromycin 500 mg [azithromycin 250 mg tablet (2 tabs)] Route: PO; mcp Order Results: Lab Order: CBC with Diff; SPEC'M 10/05/16 11:12 Test: WHITE BLOOD COUNT; Value: 13.5; Range: 4.0-10.0; Abnormal: Above high normal; Units: K/mm3; Status: F Test: RED BLOOD COUNT; Value: 5.23; Range: 4.00-5.40; Units: M/mm3; Status: F Test: HEMOGLOBIN; Value: 15.4; Range: 12.0-16.0; Units: g/dl; Status: F Test: HEMATOCRIT; Value: 45.7; Range: 36.0-47.0; Units: %; Status: F Test: MEAN CORPUSCULAR VOLUME; Value: 87.4; Range: 80.0-96.0; Units: fl; Status: F Test: MEAN CORPUSCULAR HEMOGLOBIN; Value: 29.4; Range: 27.0-33.0; Units: pg; Status: F Test: MEAN CORPUSCULAR HGB CONC; Value: 33.7; Range: 32.0-36.5; Units: g/dl; Status: F Test: RED CELL DISTRIBUTION WIDTH; Value: 13.5; Range: 11.5-14.5; Units: %; Status: F Test: PLATELET COUNT, AUTOMATED; Value: 314; Range: 150-450; Units: k/mm3; Status: F Test: NEUTROPHILS; Value: 70; Range: 35-75; Units: %; Status: F Test: LYMPHOCYTES; Value: 16; Range: 16-52; Units: %; Status: F Test: MONOCYTES; Value: 3; Range: 0-8; Units: %; Status: F Test: EOSINOPHILS; Value: 1; Range: 0-5; Units: %; Status: F Test: BASOPHILS; Value: 1; Range: 0-4; Units: %; Status: F Test: ATYPICAL LYMPH; Value: 9; Range: 0-5; Abnormal: Above high normal; Units: %; Status: F Test: RBC MORPHOLOGY; Value: NORMAL; Status: F Lab Order: Complete Comphrensive Metabolic; SPEC'M 10/05/16 11:12 Test: GLUCOSE, FASTING; Value: 91; Range: 70-105; Units: MG/DL; Status: F Test: BLOOD UREA NITROGEN; Value: 13; Range: 7-18; Units: MG/DL; Status: F Test: CREATININE FOR GFR; Value: 0.85; Range: 0.55-1.02; Units: MG/DL; Status: F Test: GLOMERULAR FILTRATION RATE; Value: > 60.0; Range: >60; Status: F Test: SODIUM LEVEL; Value: 143; Range: 136-145; Units: MEQ/L; Status: F Test: POTASSIUM SERUM; Value: 4.2; Range: 3.5-5.1; Units: MEQ/L; Status: F Test: CHLORIDE LEVEL; Value: 107; Range: 98-107; Units: MEQ/L; Status: F Test: CARBON DIOXIDE LEVEL; Value: 29; Range: 21-32; Units: MEQ/L; Status: F Test: ANION GAP; Value: 7; Range: 8-16; Abnormal: Below low normal; Units: MEQ/L; Status: F Test: CALCIUM LEVEL; Value: 9.0; Range: 8.5-10.1; Units: MG/DL; Status: F Test: AST/SGOT; Value: 8; Range: 15-37; Abnormal: Below low normal; Units: U/L; Status: F Test: ALT/SGPT; Value: 13; Range: 12-78; Units: U/L; Status: F Test: ALKALINE PHOSPHATASE; Value: 72; Range: 45-117; Units: U/L; Status: F Test: BILIRUBIN,TOTAL; Value: 0.4; Range: 0.2-1.0; Units: MG/DL; Status: F Test: TOTAL PROTEIN; Value: 6.9; Range: 6.4-8.2; Units: GM/DL; Status: F Test: ALBUMIN; Value: 3.9; Range: 3.2-5.2; Units: GM/DL; Status: F Test: ALBUMIN/GLOBULIN RATIO; Value: 1.30; Range: 1.00-1.93; Status: F Test Note: ; Units are mL/min/1.73 m2 Chronic Kidney Disease Staging per NKF: Stage I & II GFR >=60 Normal to Mildly Decreased Stage III GFR 30-59 Moderately Decreased Stage IV GFR 15-29 Severely Decreased Stage V GFR <15 Very Little GFR Left ESRD GFR <15 on CRYPTOLOGIC SUPPORT SPECIALIST Lab Order: Mumps Virus Igg Antibody; SPEC'M 10/05/16 11:12 Test: MUMPS VIRUS IgG ANTIBODY; Value: 225.0; Range: Immune >10.9; Units: AU/mL; Status: F Test Note: ; Negative <9.0 Equivocal 9.0 - 10.9 Positive >10.9 A positive result generally indicates past exposure to Mumps virus or previous vaccination. Lab Order: Mumps Virus Igm Antibody; SPEC'M 01/10/17 11:12 Test: MUMPS VIRUS IgM ANTIBODY; Value: <0.80; Range: 0.00-0.79; Units: AU; Status: F Test Note: ; Negative < 0.80 Borderline 0.80 - 1.20 Positive > 1.20 . Note: The presence of IgM specific antibody should be interpreted in conjunction with the patient's clinical history and exposure risk when an acute infection is suspected. Performed at: [facility] [id number] Software Deployment Engineer: Katt Coyle MD, Phone: [phone] Performed at: [facility] [address] [id number] Software Deployment Engineer: Delvis Doran MD, Phone: [phone] Lab Order: Monoscreen; SPEC'M 10/05/16 11:12 Test: MONO SCRN; Value: NEGATIVE; Range: NEGATIVE; Status: F Lab Order: GATS (NEGATIVE STREP SCREEN); SPEC'M 10/05/16 11:07 Test: GATS CULTURE (NEG STREP SCR); Value: GATS RESULT POSITIVE FOR STREP PYOGENES (GROUP A); Abnormal: Abnormal; Status: F Test: GATS CULTURE (NEG STREP SCR); Value: ORGANISM 1: STREPTOCOCCUS PYOGENES GRP A; Status: F Test: GATS CULTURE (NEG STREP SCR); Value: STREPTOCOCCUS PYOGENES GRP A; Status: F Test: GATS CULTURE (NEG STREP SCR); Value: QUANTITY OF GROWTH MODERATE; Status: F Lab Order: PLATELET ESTIMATE; SPEC'M 10/05/16 11:12 Test: PLATELET ESTIMATE; Value: NORMAL; Range: NORMAL; Status: F Radiology Order: CT Neck With Contrast Test: CT Neck With Contrast REASON FOR EXAMINATION: Deformity/Swelling; CT NECK WITH CONTRAST:; ; HISTORY: Neck swelling.; ; CONTRAST: Isovue 370, 75 mL.; ; The naso-, lawanda- and hypopharynx, larynx and subglottic trachea are normal in; appearance. A cystic mass is present in the posterior posterior submandibular; space. The cyst is lateral to the right internal and external carotid arteries; and internal jugular vein and anteromedial to the right sternocleidomastoid; muscle. The cystic mass measures 2.7 cm in transverse by 3 cm in AP x 3.3 cm in; cephalocaudal dimensions. There is mass effect on the adjacent right; submandibular gland, right internal and external carotid arteries and right; internal jugular vein and right sternocleidomastoid muscle. The surrounding; tissue planes are intact. The parotid, left submandibular and thyroid glands are; normal. Small lymph nodes, less than 1 cm in size are present in the posterior; triangles, left internal jugular chain, submandibular and submental areas. The; lung apices are clear. The visualized sinuses are clear.; ; IMPRESSION:; ; There is a cystic right neck mass in the posterior right submandibular space as; described above. 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 kr3 12:56 Discharge ordered by Provider. ef1 13:05 Discharge Assessment: Patient awake, alert and oriented x 3. No cognitive and/or mcp functional deficits noted. Patient verbalized understanding of disposition instructions. patient administered narcotics - no. The following High Risk Discharge criteria are identified: None. Discharged to home ambulatory. Condition: stable. Discharge instructions given to patient, Instructed on discharge instructions, follow up and referral plans. medication usage, Demonstrated understanding of instructions, medications, Pt was receptive of discharge instructions/ teaching. Prescriptions given X 2. Property sent home with patient. 13:05 Patient left the ED. [facility] Addendum: 10/08/2016 10:09 Narrative: GATSNEG culture report received and reviewed by Dr. Donis. No [facility] [place] [facility] orders received. Signatures: Dispatcher [employer] EDMS Amparo Self, RN RN Lisa Machado, CAR DUMPER OPERATOR HELPER CAR DUMPER OPERATOR HELPER jam1 Ignacia Hester, Reg Reg Tootie DenisRN RN kr3 Karol Rodriguez, PA-C PA-C ef1 Elvie Cordoba RN RN hs1 Shaylee Byrd RN RN jc4 Sandy Nava, CAR DUMPER OPERATOR HELPER CAR DUMPER OPERATOR HELPER ct3 Edith Singh, CAR DUMPER OPERATOR HELPER CAR DUMPER OPERATOR HELPER rs6 Nano Harvey jp5 MTDD
--- NOTE | 2016-10-08 10:11 | EDDOCDS ---
Physician Documentation [facility] Name: Marga Trujillo Age: 31 yrs Sex: Female : 1985 Arrival Date: 10/05/2016 Time: 09:58 Bed I5 / M5 Private MD: Celestino Redding Disposition: 10/05/16 12:56 Discharged to Home/Self Care. 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 - Condition is Stable. - Prescriptions for Ibuprofen 800 mg Oral Tablet - take 1 tablet by ORAL route every 8 hours As needed take with food; 30 tablet. Zithromax 250 mg Oral Tablet - take 1 tablet by ORAL route once daily start tomorrow; 4 tablet. - Medication Reconciliation, Local Pharmacy Hours form. - Follow up: Junior Castro; When: 1 - 2 days; Reason: Further diagnostic work-up, Recheck today's complaints, Continuance of care. Follow up: Emergency Department; Reason: Worsening of conditions. - Problem is new. - Symptoms have improved. Historical: - Allergies: Keflexunsure; PENICILLINS (Swelling); - Home Meds: 1. none - PMHx: none; - PSHx: Appendectomy; - Social history: Smoking status: Patient uses tobacco products, heavy tobacco smoker. No barriers to communication noted, The patient speaks fluent Macedonian, Speaks appropriately for age. - Family history: Not pertinent. - : The pt / caregiver states he / she is not on anticoagulants. Home medication list is obtained from the patient. - Exposure Risk Screening:: None identified. 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 3 in. (160.02 cm) (R); Pain 0/10; 13:01 BP 123 / 71; Pulse 54; Resp 18; Temp 97.8; Pulse Ox 99% ; Pain 10/10; jam1 10:00 Body Mass Index 29.23 (74.84 kg, 160.02 cm) ct3 MDM: 10:45 Strep Screen, Nursing ordered. ef1 10:54 IV Saline Lock ordered. ef1 10:55 CBC with Diff Ordered. EDMS 10:55 Complete Comphrensive Metabolic Ordered. EDMS 10:55 CT Neck With Contrast Ordered. EDMS 10:57 Mumps Virus Igg Antibody Ordered. EDMS 10:57 Mumps Virus Igm Antibody Ordered. EDMS 11:01 Monoscreen Ordered. EDMS 11:12 GATS (NEGATIVE STREP SCREEN) Ordered. EDMS 11:24 [place] [place] Payment Agreement was scanned into [employer] and attached to record. jp5 11:24 Financial registration complete. jp5 11:52 Complete Comphrensive Metabolic Reviewed. ef1 11:52 Monoscreen Reviewed. ef1 12:02 DIFFERENTIAL NO CHARGE Ordered. EDMS 12:02 PLATELET ESTIMATE Ordered. EDMS 12:43 CBC with Diff Reviewed. ef1 12:43 PLATELET ESTIMATE Reviewed. ef1 12:57 azithromycin 500 mg PO once ordered. ef1 14:50 T-Sheet-- Draft Copy was scanned into [employer] and attached to record. gb 14:51 Radiology Report was scanned into [employer] and attached to record. gb Administered Medications: 13:04 Drug: azithromycin 500 mg [azithromycin 250 mg tablet (2 tabs)] Route: PO; [facility] Signatures: Dispatcher [employer] Amparo Sheridan, SHREYAS PRITCHETT [facility] Ignacia Hester, Carlos Gonzalez Tootie Joseph RN RN kr3 Karol Rodriguez, PA-C PA-C ef1 Elvie Cordoba, RN RN 1 Nano Harvey jp5 The chart was reviewed and I authenticate all verbal orders and agree with the evaluation and treatment provided.Attachments: 11:24 [facility] Payment Agreement jp5 14:50 T-Sheet-- Draft Copy gb MTDD
--- NOTE | 2016-10-08 10:12 | EDDOCDS ---
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 Patient reports has been there hs1 since laryngitis possibly 3 months ago. Patient states increased cotton mouth and needing to drink a lot more. Adult Sepsis Screening: The patient does not have new or worsening altered mentation. Patient's respiratory rate is less than 22. Systolic blood pressure is greater than 100. Patient has a qSOFA score of 0- Negative Sepsis Screen. Suicide/Homicide risk assessment- the patient denies having any suicidal and/or homicidal ideations and does not present with any other emotional, behavioral or mental health complaints. Status: Patient is not a line service technician or dependent. Transition of care: patient was not received from another setting of care. 10:03 Acuity: GABE Level 3 hs1 10:03 Method Of Arrival: Walkin/Carried/Asstd hs1 Triage Assessment: 10:05 General: Appears in no apparent distress, Behavior is appropriate for age, cooperative. hs1 Pain: Denies pain. HIV screening NA for this visit Offered previously. EENT: Denies difficulty swallowing. Respiratory: Airway is patent Respiratory effort is even, unlabored, Respiratory pattern is regular, symmetrical. Derm: Swollen area noted on right submandibular area. 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 none - PMHx: none; - PSHx: Appendectomy; - Social history: Smoking status: Patient uses tobacco products, heavy tobacco smoker. No barriers to communication noted, The patient speaks fluent Russian, Speaks appropriately for age. - Family history: Not pertinent. - : The pt / caregiver states he / she is not on anticoagulants. Home medication list is obtained from the patient. - Exposure Risk Screening:: None identified. Screenin:15 Screening information is obtained from the patient. Fall risk: No risks identified. mcp Assistance ADL's: requires no assistance with activities of daily living. Abuse/DV Screen: The patient / caregiver reports he/she is: not in a situation that causes fear, pain or injury. Nutritional screening: No deficits noted. Advance Directives: There is no active DNR order. home support is adequate. Assessment: 11:15 General: Appears uncomfortable, Behavior is cooperative. Pain: Location: neck Pain mcp currently is 3 out of 10 on a pain scale. Neurological: No deficits noted. Respiratory: Airway is patent Respiratory effort is even, unlabored. Derm: Skin is pink, warm & dry. 12:10 Reassessment: Patient appears in no apparent distress at this time. Neurological: No kr3 deficits noted. Respiratory: Respiratory effort is even, unlabored. 13:04 General: Appears in no apparent distress, comfortable, Behavior is cooperative. Pain: mcp Denies pain. Neurological: No deficits noted. Respiratory: Airway is patent Respiratory effort is even, unlabored. Derm: Skin is pink, warm & dry. Vital Signs: 10:00 BP 112 / 68; Pulse 81; Resp 18; Temp 97.6(O); Pulse Ox 99% on R/A; Weight 74.84 kg (M); ct3 Height 5 ft. 3 in. (160.02 cm) (R); Pain 0/10; 13:01 BP 123 / 71; Pulse 54; Resp 18; Temp 97.8; Pulse Ox 99% ; Pain 10/10; jam1 10:00 Body Mass Index 29.23 (74.84 kg, 160.02 cm) ct3 Vitals: 10:00 Log In Time: October 05, 2016 at 09:57. ct3 11:11 Strep Screen is obtained and tested: Negative, a GATSNEG culture is ordered in [facility] and sent. ED Course: 09:59 Patient visited by Sandy Nava PCA. ct3 09:59 Celestino Redding is Private Physician. ct3 09:59 Patient moved to Waiting ct3 10:01 Patient moved to Pre RCE ct3 10:05 Triage Initiated hs1 10:43 Patient moved to Triage 2 hs1 10:45 [facility] ef1 10:45 Rochelle Donis MD is Attending Physician. ef1 10:46 Patient visited by Karol Rodriguez PA-C. ef1 11:00 Patient moved to I5 / rs6 11:15 The patient / caregiver is instructed regarding the plan of care and ED course. Patient mcp has correct armband on for positive identification. Placed in gown. Bed in low position. Call light in reach. 11:16 Patient visited by Amparo Self RN. [facility] 11:16 Inserted saline lock: 20 gauge in left antecubital area and blood collected. The mcp patient tolerated the procedure well. Labs drawn. (by ED staff). Sent per order to lab. 11:16 Monoscreen Sent. mcp 11:16 Mumps Virus Igm Antibody Sent. [facility] 11:16 Mumps Virus Igg Antibody Sent. [facility] 11:16 Complete Comphrensive Metabolic Sent. [facility] 11:16 CBC with Diff Sent. [facility] 11:24 [place] Payment Agreement was scanned into [employer] and attached to record. jp5 11:52 Patient visited by Karol Rodriguez PA-C. ef1 12:24 DIFFERENTIAL NO CHARGE Sent. kr3 12:43 Patient visited by Karol Rodriguez PA-C. ef1 12:56 Junior Castro is Referral Physician. ef1 13:05 Discontinued lock intact, bleeding controlled, pressure dressing applied, No mcp redness/swelling at site. No procedures done that require assistance. 14:50 T-Sheet-- Draft Copy was scanned into [employer] and attached to record. gb 14:51 Radiology Report was scanned into [employer] and attached to record. gb 17:15 CT Neck With Contrast Returned. EDMS Administered Medications: 13:04 Drug: azithromycin 500 mg [azithromycin 250 mg tablet (2 tabs)] Route: PO; mcp Order Results: Lab Order: CBC with Diff; SPEC'M 10/05/16 11:12 Test: WHITE BLOOD COUNT; Value: 13.5; Range: 4.0-10.0; Abnormal: Above high normal; Units: K/mm3; Status: F Test: RED BLOOD COUNT; Value: 5.23; Range: 4.00-5.40; Units: M/mm3; Status: F Test: HEMOGLOBIN; Value: 15.4; Range: 12.0-16.0; Units: g/dl; Status: F Test: HEMATOCRIT; Value: 45.7; Range: 36.0-47.0; Units: %; Status: F Test: MEAN CORPUSCULAR VOLUME; Value: 87.4; Range: 80.0-96.0; Units: fl; Status: F Test: MEAN CORPUSCULAR HEMOGLOBIN; Value: 29.4; Range: 27.0-33.0; Units: pg; Status: F Test: MEAN CORPUSCULAR HGB CONC; Value: 33.7; Range: 32.0-36.5; Units: g/dl; Status: F Test: RED CELL DISTRIBUTION WIDTH; Value: 13.5; Range: 11.5-14.5; Units: %; Status: F Test: PLATELET COUNT, AUTOMATED; Value: 314; Range: 150-450; Units: k/mm3; Status: F Test: NEUTROPHILS; Value: 70; Range: 35-75; Units: %; Status: F Test: LYMPHOCYTES; Value: 16; Range: 16-52; Units: %; Status: F Test: MONOCYTES; Value: 3; Range: 0-8; Units: %; Status: F Test: EOSINOPHILS; Value: 1; Range: 0-5; Units: %; Status: F Test: BASOPHILS; Value: 1; Range: 0-4; Units: %; Status: F Test: ATYPICAL LYMPH; Value: 9; Range: 0-5; Abnormal: Above high normal; Units: %; Status: F Test: RBC MORPHOLOGY; Value: NORMAL; Status: F Lab Order: Complete Comphrensive Metabolic; SPEC'M 10/05/16 11:12 Test: GLUCOSE, FASTING; Value: 91; Range: 70-105; Units: MG/DL; Status: F Test: BLOOD UREA NITROGEN; Value: 13; Range: 7-18; Units: MG/DL; Status: F Test: CREATININE FOR GFR; Value: 0.85; Range: 0.55-1.02; Units: MG/DL; Status: F Test: GLOMERULAR FILTRATION RATE; Value: > 60.0; Range: >60; Status: F Test: SODIUM LEVEL; Value: 143; Range: 136-145; Units: MEQ/L; Status: F Test: POTASSIUM SERUM; Value: 4.2; Range: 3.5-5.1; Units: MEQ/L; Status: F Test: CHLORIDE LEVEL; Value: 107; Range: 98-107; Units: MEQ/L; Status: F Test: CARBON DIOXIDE LEVEL; Value: 29; Range: 21-32; Units: MEQ/L; Status: F Test: ANION GAP; Value: 7; Range: 8-16; Abnormal: Below low normal; Units: MEQ/L; Status: F Test: CALCIUM LEVEL; Value: 9.0; Range: 8.5-10.1; Units: MG/DL; Status: F Test: AST/SGOT; Value: 8; Range: 15-37; Abnormal: Below low normal; Units: U/L; Status: F Test: ALT/SGPT; Value: 13; Range: 12-78; Units: U/L; Status: F Test: ALKALINE PHOSPHATASE; Value: 72; Range: 45-117; Units: U/L; Status: F Test: BILIRUBIN,TOTAL; Value: 0.4; Range: 0.2-1.0; Units: MG/DL; Status: F Test: TOTAL PROTEIN; Value: 6.9; Range: 6.4-8.2; Units: GM/DL; Status: F Test: ALBUMIN; Value: 3.9; Range: 3.2-5.2; Units: GM/DL; Status: F Test: ALBUMIN/GLOBULIN RATIO; Value: 1.30; Range: 1.00-1.93; Status: F Test Note: ; Units are mL/min/1.73 m2 Chronic Kidney Disease Staging per NKF: Stage I & II GFR >=60 Normal to Mildly Decreased Stage III GFR 30-59 Moderately Decreased Stage IV GFR 15-29 Severely Decreased Stage V GFR <15 Very Little GFR Left ESRD GFR <15 on COMPTOMETRIST Lab Order: Mumps Virus Igg Antibody; SPEC'M 10/05/16 11:12 Test: MUMPS VIRUS IgG ANTIBODY; Value: 225.0; Range: Immune >10.9; Units: AU/mL; Status: F Test Note: ; Negative <9.0 Equivocal 9.0 - 10.9 Positive >10.9 A positive result generally indicates past exposure to Mumps virus or previous vaccination. Lab Order: Mumps Virus Igm Antibody; SPEC'M 01/10/17 11:12 Test: MUMPS VIRUS IgM ANTIBODY; Value: <0.80; Range: 0.00-0.79; Units: AU; Status: F Test Note: ; Negative < 0.80 Borderline 0.80 - 1.20 Positive > 1.20 . Note: The presence of IgM specific antibody should be interpreted in conjunction with the patient's clinical history and exposure risk when an acute infection is suspected. Performed at: [facility] [address] [id number] [employer] Driver: Katt Coyle MD, Phone: [phone] Performed at: [facility] [address] [id number] [employer] Driver: Delvis Doran MD, Phone: [phone] Lab Order: Monoscreen; SPEC'M 10/05/16 11:12 Test: MONO SCRN; Value: NEGATIVE; Range: NEGATIVE; Status: F Lab Order: GATS (NEGATIVE STREP SCREEN); SPEC'M 10/05/16 11:07 Test: GATS CULTURE (NEG STREP SCR); Value: GATS RESULT POSITIVE FOR STREP PYOGENES (GROUP A); Abnormal: Abnormal; Status: F Test: GATS CULTURE (NEG STREP SCR); Value: ORGANISM 1: STREPTOCOCCUS PYOGENES GRP A; Status: F Test: GATS CULTURE (NEG STREP SCR); Value: STREPTOCOCCUS PYOGENES GRP A; Status: F Test: GATS CULTURE (NEG STREP SCR); Value: QUANTITY OF GROWTH MODERATE; Status: F Lab Order: PLATELET ESTIMATE; SPEC'M 10/05/16 11:12 Test: PLATELET ESTIMATE; Value: NORMAL; Range: NORMAL; Status: F Radiology Order: CT Neck With Contrast Test: CT Neck With Contrast REASON FOR EXAMINATION: Deformity/Swelling; CT NECK WITH CONTRAST:; ; HISTORY: Neck swelling.; ; CONTRAST: Isovue 370, 75 mL.; ; The naso-, lawanda- and hypopharynx, larynx and subglottic trachea are normal in; appearance. A cystic mass is present in the posterior posterior submandibular; space. The cyst is lateral to the right internal and external carotid arteries; and internal jugular vein and anteromedial to the right sternocleidomastoid; muscle. The cystic mass measures 2.7 cm in transverse by 3 cm in AP x 3.3 cm in; cephalocaudal dimensions. There is mass effect on the adjacent right; submandibular gland, right internal and external carotid arteries and right; internal jugular vein and right sternocleidomastoid muscle. The surrounding; tissue planes are intact. The parotid, left submandibular and thyroid glands are; normal. Small lymph nodes, less than 1 cm in size are present in the posterior; triangles, left internal jugular chain, submandibular and submental areas. The; lung apices are clear. The visualized sinuses are clear.; ; IMPRESSION:; ; There is a cystic right neck mass in the posterior right submandibular space as; described above. 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 kr3 12:56 Discharge ordered by Provider. ef1 13:05 Discharge Assessment: Patient awake, alert and oriented x 3. No cognitive and/or mcp functional deficits noted. Patient verbalized understanding of disposition instructions. patient administered narcotics - no. The following High Risk Discharge criteria are identified: None. Discharged to home ambulatory. Condition: stable. Discharge instructions given to patient, Instructed on discharge instructions, follow up and referral plans. medication usage, Demonstrated understanding of instructions, medications, Pt was receptive of discharge instructions/ teaching. Prescriptions given X 2. Property sent home with patient. 13:05 Patient left the ED. [facility] Addendum: 10/08/2016 10:09 Narrative: GATSNEG culture report received and reviewed by Dr. Donis. No new [facility] orders received. Signatures: Dispatcher [employer] EDMS Amparo Self, RN RN Lisa Machado, FLOOR STEWARD/STEWARDESS FLOOR STEWARD/STEWARDESS jam1 Ignacia Hester, Reg Reg Tootie DenisRN RN kr3 Karol Rodriguez, PA-C PA-C ef1 Elvie Cordoba RN RN hs1 Shaylee Byrd RN RN jc4 Sandy Nava, FLOOR STEWARD/STEWARDESS FLOOR STEWARD/STEWARDESS ct3 Edith Singh, FLOOR STEWARD/STEWARDESS FLOOR STEWARD/STEWARDESS rs6 Nano Harvey jp5 Chart Complete MTDD
--- NOTE | 2016-10-08 10:12 | EDDOCDS ---
Physician Documentation [facility] Name: Marga Trujillo Age: 31 yrs Sex: Female : 1985 Arrival Date: 10/05/2016 Time: 09:58 Bed I5 / M5 Private MD: Celestino Redding Disposition: 10/05/16 12:56 Discharged to Home/Self Care. 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 - Condition is Stable. - Prescriptions for Ibuprofen 800 mg Oral Tablet - take 1 tablet by ORAL route every 8 hours As needed take with food; 30 tablet. Zithromax 250 mg Oral Tablet - take 1 tablet by ORAL route once daily start tomorrow; 4 tablet. - Medication Reconciliation, Local Pharmacy Hours form. - Follow up: Junior Castro; When: 1 - 2 days; Reason: Further diagnostic work-up, Recheck today's complaints, Continuance of care. Follow up: Emergency Department; Reason: Worsening of conditions. - Problem is new. - Symptoms have improved. Historical: - Allergies: Keflexunsure; PENICILLINS (Swelling); - Home Meds: 1. none - PMHx: none; - PSHx: Appendectomy; - Social history: Smoking status: Patient uses tobacco products, heavy tobacco smoker. No barriers to communication noted, The patient speaks fluent Gambian, Speaks appropriately for age. - Family history: Not pertinent. - : The pt / caregiver states he / she is not on anticoagulants. Home medication list is obtained from the patient. - Exposure Risk Screening:: None identified. 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 3 in. (160.02 cm) (R); Pain 0/10; 13:01 BP 123 / 71; Pulse 54; Resp 18; Temp 97.8; Pulse Ox 99% ; Pain 10/10; jam1 10:00 Body Mass Index 29.23 (74.84 kg, 160.02 cm) ct3 MDM: 10:45 Strep Screen, Nursing ordered. ef1 10:54 IV Saline Lock ordered. ef1 10:55 CBC with Diff Ordered. EDMS 10:55 Complete Comphrensive Metabolic Ordered. EDMS 10:55 CT Neck With Contrast Ordered. EDMS 10:57 Mumps Virus Igg Antibody Ordered. EDMS 10:57 Mumps Virus Igm Antibody Ordered. EDMS 11:01 Monoscreen Ordered. EDMS 11:12 GATS (NEGATIVE STREP SCREEN) Ordered. EDMS 11:24 [facility] Payment Agreement was scanned into [employer] and attached to record. jp5 11:24 Financial registration complete. jp5 11:52 Complete Comphrensive Metabolic Reviewed. ef1 11:52 Monoscreen Reviewed. ef1 12:02 DIFFERENTIAL NO CHARGE Ordered. EDMS 12:02 PLATELET ESTIMATE Ordered. EDMS 12:43 CBC with Diff Reviewed. ef1 12:43 PLATELET ESTIMATE Reviewed. ef1 12:57 azithromycin 500 mg PO once ordered. ef1 14:50 T-Sheet-- Draft Copy was scanned into [employer] and attached to record. gb 14:51 Radiology Report was scanned into [employer] and attached to record. gb Administered Medications: 13:04 Drug: azithromycin 500 mg [azithromycin 250 mg tablet (2 tabs)] Route: PO; [facility] Signatures: Dispatcher [employer] Amparo Sheridan, SHREYAS PRITCHETT [facility] Ignacia Hester, Carlos Gonzalez Tootie Joseph RN RN kr3 Karol Rodriguez, PA-C PA-C ef1 Elvie Cordoba, RN RN 1 Nano Harvey jp5 The chart was reviewed and I authenticate all verbal orders and agree with the evaluation and treatment provided.Attachments: 11:24 [facility] Payment Agreement jp5 14:50 T-Sheet-- Draft Copy gb Chart Complete MTDD
--- NOTE | 2016-10-08 10:12 | EDDOCDS ---
Physician Documentation Name: Marga Trujillo Age: 31 yrs Sex: Female : 1985 Arrival Date: 10/05/2016 Time: 09:58 Bed I5 / M5 Private MD: Celestino Redding Disposition: 10/05/16 12:56 Discharged to Home/Self Care. 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 - Condition is Stable. - Prescriptions for Ibuprofen 800 mg Oral Tablet - take 1 tablet by ORAL route every 8 hours As needed take with food; 30 tablet. Zithromax 250 mg Oral Tablet - take 1 tablet by ORAL route once daily start tomorrow; 4 tablet. - Medication Reconciliation, Local Pharmacy Hours form. - Follow up: Junior Castro; When: 1 - 2 days; Reason: Further diagnostic work-up, Recheck today's complaints, Continuance of care. Follow up: Emergency Department; Reason: Worsening of conditions. - Problem is new. - Symptoms have improved. Historical: - Allergies: Keflexunsure; PENICILLINS (Swelling); - Home Meds: 1. none - PMHx: none; - PSHx: Appendectomy; - Social history: Smoking status: Patient uses tobacco products, heavy tobacco smoker. No barriers to communication noted, The patient speaks fluent Belarusian, Speaks appropriately for age. - Family history: Not pertinent. - : The pt / caregiver states he / she is not on anticoagulants. Home medication list is obtained from the patient. - Exposure Risk Screening:: None identified. 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 3 in. (160.02 cm) (R); Pain 0/10; 13:01 BP 123 / 71; Pulse 54; Resp 18; Temp 97.8; Pulse Ox 99% ; Pain 10/10; jam1 10:00 Body Mass Index 29.23 (74.84 kg, 160.02 cm) ct3 MDM: 10:45 Strep Screen, Nursing ordered. ef1 10:54 IV Saline Lock ordered. ef1 10:55 CBC with Diff Ordered. EDMS 10:55 Complete Comphrensive Metabolic Ordered. EDMS 10:55 CT Neck With Contrast Ordered. EDMS 10:57 Mumps Virus Igg Antibody Ordered. EDMS 10:57 Mumps Virus Igm Antibody Ordered. EDMS 11:01 Monoscreen Ordered. EDMS 11:12 GATS (NEGATIVE STREP SCREEN) Ordered. EDMS 11:24 [facility] Payment Agreement was scanned into [employer] and attached to record. jp5 11:24 Financial registration complete. jp5 11:52 Complete Comphrensive Metabolic Reviewed. ef1 11:52 Monoscreen Reviewed. ef1 12:02 DIFFERENTIAL NO CHARGE Ordered. EDMS 12:02 PLATELET ESTIMATE Ordered. EDMS 12:43 CBC with Diff Reviewed. ef1 12:43 PLATELET ESTIMATE Reviewed. ef1 12:57 azithromycin 500 mg PO once ordered. ef1 14:50 T-Sheet-- Draft Copy was scanned into [employer] and attached to record. gb 14:51 Radiology Report was scanned into [employer] and attached to record. gb Administered Medications: 13:04 Drug: azithromycin 500 mg [azithromycin 250 mg tablet (2 tabs)] Route: PO; [facility] Signatures: Dispatcher [employer] Amparo Sheridan, SHREYAS PRITCHETT [facility] Ignacia Hester, Carlos Gonzalez Tootie Joseph RN RN kr3 Karol Rodriguez, PA-C PA-C ef1 Elvie Cordoba, RN RN 1 Nano Harvey jp5 The chart was reviewed and I authenticate all verbal orders and agree with the evaluation and treatment provided.Attachments: 11:24 [facility] Payment Agreement jp5 14:50 T-Sheet-- Draft Copy gb Chart Complete MTDD
--- NOTE | 2016-10-08 11:13 | EDDOCDS ---
Physician Documentation [facility] Name: Marga Trujillo Age: 31 yrs Sex: Female : 1985 Arrival Date: 10/05/2016 Time: 09:58 Bed I5 / M5 Private MD: Celestino Redding Disposition: 10/05/16 12:56 Discharged to Home/Self Care. 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 - Condition is Stable. - Prescriptions for Ibuprofen 800 mg Oral Tablet - take 1 tablet by ORAL route every 8 hours As needed take with food; 30 tablet. Zithromax 250 mg Oral Tablet - take 1 tablet by ORAL route once daily start tomorrow; 4 tablet. - Medication Reconciliation, Local Pharmacy Hours form. - Follow up: Junior Castro; When: 1 - 2 days; Reason: Further diagnostic work-up, Recheck today's complaints, Continuance of care. Follow up: Emergency Department; Reason: Worsening of conditions. - Problem is new. - Symptoms have improved. Historical: - Allergies: Keflexunsure; PENICILLINS (Swelling); - Home Meds: 1. none - PMHx: none; - PSHx: Appendectomy; - Social history: Smoking status: Patient uses tobacco products, heavy tobacco smoker. No barriers to communication noted, The patient speaks fluent Cuban, Speaks appropriately for age. - Family history: Not pertinent. - : The pt / caregiver states he / she is not on anticoagulants. Home medication list is obtained from the patient. - Exposure Risk Screening:: None identified. 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 3 in. (160.02 cm) (R); Pain 0/10; 13:01 BP 123 / 71; Pulse 54; Resp 18; Temp 97.8; Pulse Ox 99% ; Pain 10/10; jam1 10:00 Body Mass Index 29.23 (74.84 kg, 160.02 cm) ct3 MDM: 10:45 Strep Screen, Nursing ordered. ef1 10:54 IV Saline Lock ordered. ef1 10:55 CBC with Diff Ordered. EDMS 10:55 Complete Comphrensive Metabolic Ordered. EDMS 10:55 CT Neck With Contrast Ordered. EDMS 10:57 Mumps Virus Igg Antibody Ordered. EDMS 10:57 Mumps Virus Igm Antibody Ordered. EDMS 11:01 Monoscreen Ordered. EDMS 11:12 GATS (NEGATIVE STREP SCREEN) Ordered. EDMS 11:24 [facility] Payment Agreement was scanned into [employer] and attached to record. jp5 11:24 Financial registration complete. jp5 11:52 Complete Comphrensive Metabolic Reviewed. ef1 11:52 Monoscreen Reviewed. ef1 12:02 DIFFERENTIAL NO CHARGE Ordered. EDMS 12:02 PLATELET ESTIMATE Ordered. EDMS 12:43 CBC with Diff Reviewed. ef1 12:43 PLATELET ESTIMATE Reviewed. ef1 12:57 azithromycin 500 mg PO once ordered. ef1 14:50 T-Sheet-- Draft Copy was scanned into [employer] and attached to record. gb 14:51 Radiology Report was scanned into [employer] and attached to record. gb Administered Medications: 13:04 Drug: azithromycin 500 mg [azithromycin 250 mg tablet (2 tabs)] Route: PO; [facility] Signatures: Dispatcher [employer] Amparo Sheridan, SHREYAS PRITCHETT [facility] Ignacia Hester, Carlos Gonzalez Tootie Joseph RN RN kr3 Karol Rodriguez, PA-C PA-C ef1 Elvie Cordoba, RN RN 1 Nano Harvey jp5 The chart was reviewed and I authenticate all verbal orders and agree with the evaluation and treatment provided.Attachments: 11:24 [facility] Payment Agreement jp5 14:50 T-Sheet-- Draft Copy gb Chart Complete MTDD
--- NOTE | 2016-10-08 11:13 | EDDOCDS ---
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 Patient reports has been there hs1 since laryngitis possibly 3 months ago. Patient states increased cotton mouth and needing to drink a lot more. Adult Sepsis Screening: The patient does not have new or worsening altered mentation. Patient's respiratory rate is less than 22. Systolic blood pressure is greater than 100. Patient has a qSOFA score of 0- Negative Sepsis Screen. Suicide/Homicide risk assessment- the patient denies having any suicidal and/or homicidal ideations and does not present with any other emotional, behavioral or mental health complaints. Status: Patient is not a human services supervisor or dependent. Transition of care: patient was not received from another setting of care. 10:03 Acuity: GABE Level 3 hs1 10:03 Method Of Arrival: Walkin/Carried/Asstd hs1 Triage Assessment: 10:05 General: Appears in no apparent distress, Behavior is appropriate for age, cooperative. hs1 Pain: Denies pain. HIV screening NA for this visit Offered previously. EENT: Denies difficulty swallowing. Respiratory: Airway is patent Respiratory effort is even, unlabored, Respiratory pattern is regular, symmetrical. Derm: Swollen area noted on right submandibular area. 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 none - PMHx: none; - PSHx: Appendectomy; - Social history: Smoking status: Patient uses tobacco products, heavy tobacco smoker. No barriers to communication noted, The patient speaks fluent Tuvaluan, Speaks appropriately for age. - Family history: Not pertinent. - : The pt / caregiver states he / she is not on anticoagulants. Home medication list is obtained from the patient. - Exposure Risk Screening:: None identified. Screenin:15 Screening information is obtained from the patient. Fall risk: No risks identified. mcp Assistance ADL's: requires no assistance with activities of daily living. Abuse/DV Screen: The patient / caregiver reports he/she is: not in a situation that causes fear, pain or injury. Nutritional screening: No deficits noted. Advance Directives: There is no active DNR order. home support is adequate. Assessment: 11:15 General: Appears uncomfortable, Behavior is cooperative. Pain: Location: neck Pain mcp currently is 3 out of 10 on a pain scale. Neurological: No deficits noted. Respiratory: Airway is patent Respiratory effort is even, unlabored. Derm: Skin is pink, warm & dry. 12:10 Reassessment: Patient appears in no apparent distress at this time. Neurological: No kr3 deficits noted. Respiratory: Respiratory effort is even, unlabored. 13:04 General: Appears in no apparent distress, comfortable, Behavior is cooperative. Pain: mcp Denies pain. Neurological: No deficits noted. Respiratory: Airway is patent Respiratory effort is even, unlabored. Derm: Skin is pink, warm & dry. Vital Signs: 10:00 BP 112 / 68; Pulse 81; Resp 18; Temp 97.6(O); Pulse Ox 99% on R/A; Weight 74.84 kg (M); ct3 Height 5 ft. 3 in. (160.02 cm) (R); Pain 0/10; 13:01 BP 123 / 71; Pulse 54; Resp 18; Temp 97.8; Pulse Ox 99% ; Pain 10/10; jam1 10:00 Body Mass Index 29.23 (74.84 kg, 160.02 cm) ct3 Vitals: 10:00 Log In Time: October 05, 2016 at 09:57. ct3 11:11 Strep Screen is obtained and tested: Negative, a GATSNEG culture is ordered in [facility] and sent. ED Course: 09:59 Patient visited by Sandy Nava PCA. ct3 09:59 Celestino Redding is Private Physician. ct3 09:59 Patient moved to Waiting ct3 10:01 Patient moved to Pre RCE ct3 10:05 Triage Initiated hs1 10:43 Patient moved to Triage 2 hs1 10:45 [facility] ef1 10:45 Rochelle Donis MD is Attending Physician. ef1 10:46 Patient visited by Karol Rodriguez PA-C. ef1 11:00 Patient moved to I5 / rs6 11:15 The patient / caregiver is instructed regarding the plan of care and ED course. Patient mcp has correct armband on for positive identification. Placed in gown. Bed in low position. Call light in reach. 11:16 Patient visited by Amparo Self RN. [facility] 11:16 Inserted saline lock: 20 gauge in left antecubital area and blood collected. The mcp patient tolerated the procedure well. Labs drawn. (by ED staff). Sent per order to lab. 11:16 Monoscreen Sent. mcp 11:16 Mumps Virus Igm Antibody Sent. [facility] 11:16 Mumps Virus Igg Antibody Sent. [facility] 11:16 Complete Comphrensive Metabolic Sent. [facility] 11:16 CBC with Diff Sent. [facility] 11:24 [facility] [place] was scanned into [employer] and attached to record. jp5 11:52 Patient visited by Karol Rodriguez PA-C. ef1 12:24 DIFFERENTIAL NO CHARGE Sent. kr3 12:43 Patient visited by Karol Rodriguez PA-C. ef1 12:56 Junior Castro is Referral Physician. ef1 13:05 Discontinued lock intact, bleeding controlled, pressure dressing applied, No mcp redness/swelling at site. No procedures done that require assistance. 14:50 T-Sheet-- Draft Copy was scanned into [employer] and attached to record. gb 14:51 Radiology Report was scanned into [employer] and attached to record. gb 17:15 CT Neck With Contrast Returned. EDMS Administered Medications: 13:04 Drug: azithromycin 500 mg [azithromycin 250 mg tablet (2 tabs)] Route: PO; mcp Order Results: Lab Order: CBC with Diff; SPEC'M 10/05/16 11:12 Test: WHITE BLOOD COUNT; Value: 13.5; Range: 4.0-10.0; Abnormal: Above high normal; Units: K/mm3; Status: F Test: RED BLOOD COUNT; Value: 5.23; Range: 4.00-5.40; Units: M/mm3; Status: F Test: HEMOGLOBIN; Value: 15.4; Range: 12.0-16.0; Units: g/dl; Status: F Test: HEMATOCRIT; Value: 45.7; Range: 36.0-47.0; Units: %; Status: F Test: MEAN CORPUSCULAR VOLUME; Value: 87.4; Range: 80.0-96.0; Units: fl; Status: F Test: MEAN CORPUSCULAR HEMOGLOBIN; Value: 29.4; Range: 27.0-33.0; Units: pg; Status: F Test: MEAN CORPUSCULAR HGB CONC; Value: 33.7; Range: 32.0-36.5; Units: g/dl; Status: F Test: RED CELL DISTRIBUTION WIDTH; Value: 13.5; Range: 11.5-14.5; Units: %; Status: F Test: PLATELET COUNT, AUTOMATED; Value: 314; Range: 150-450; Units: k/mm3; Status: F Test: NEUTROPHILS; Value: 70; Range: 35-75; Units: %; Status: F Test: LYMPHOCYTES; Value: 16; Range: 16-52; Units: %; Status: F Test: MONOCYTES; Value: 3; Range: 0-8; Units: %; Status: F Test: EOSINOPHILS; Value: 1; Range: 0-5; Units: %; Status: F Test: BASOPHILS; Value: 1; Range: 0-4; Units: %; Status: F Test: ATYPICAL LYMPH; Value: 9; Range: 0-5; Abnormal: Above high normal; Units: %; Status: F Test: RBC MORPHOLOGY; Value: NORMAL; Status: F Lab Order: Complete Comphrensive Metabolic; SPEC'M 10/05/16 11:12 Test: GLUCOSE, FASTING; Value: 91; Range: 70-105; Units: MG/DL; Status: F Test: BLOOD UREA NITROGEN; Value: 13; Range: 7-18; Units: MG/DL; Status: F Test: CREATININE FOR GFR; Value: 0.85; Range: 0.55-1.02; Units: MG/DL; Status: F Test: GLOMERULAR FILTRATION RATE; Value: > 60.0; Range: >60; Status: F Test: SODIUM LEVEL; Value: 143; Range: 136-145; Units: MEQ/L; Status: F Test: POTASSIUM SERUM; Value: 4.2; Range: 3.5-5.1; Units: MEQ/L; Status: F Test: CHLORIDE LEVEL; Value: 107; Range: 98-107; Units: MEQ/L; Status: F Test: CARBON DIOXIDE LEVEL; Value: 29; Range: 21-32; Units: MEQ/L; Status: F Test: ANION GAP; Value: 7; Range: 8-16; Abnormal: Below low normal; Units: MEQ/L; Status: F Test: CALCIUM LEVEL; Value: 9.0; Range: 8.5-10.1; Units: MG/DL; Status: F Test: AST/SGOT; Value: 8; Range: 15-37; Abnormal: Below low normal; Units: U/L; Status: F Test: ALT/SGPT; Value: 13; Range: 12-78; Units: U/L; Status: F Test: ALKALINE PHOSPHATASE; Value: 72; Range: 45-117; Units: U/L; Status: F Test: BILIRUBIN,TOTAL; Value: 0.4; Range: 0.2-1.0; Units: MG/DL; Status: F Test: TOTAL PROTEIN; Value: 6.9; Range: 6.4-8.2; Units: GM/DL; Status: F Test: ALBUMIN; Value: 3.9; Range: 3.2-5.2; Units: GM/DL; Status: F Test: ALBUMIN/GLOBULIN RATIO; Value: 1.30; Range: 1.00-1.93; Status: F Test Note: ; Units are mL/min/1.73 m2 Chronic Kidney Disease Staging per NKF: Stage I & II GFR >=60 Normal to Mildly Decreased Stage III GFR 30-59 Moderately Decreased Stage IV GFR 15-29 Severely Decreased Stage V GFR <15 Very Little GFR Left ESRD GFR <15 on PROFESSOR OF KINESIOLOGY Lab Order: Mumps Virus Igg Antibody; SPEC'M 10/05/16 11:12 Test: MUMPS VIRUS IgG ANTIBODY; Value: 225.0; Range: Immune >10.9; Units: AU/mL; Status: F Test Note: ; Negative <9.0 Equivocal 9.0 - 10.9 Positive >10.9 A positive result generally indicates past exposure to Mumps virus or previous vaccination. Lab Order: Mumps Virus Igm Antibody; SPEC'M 01/10/17 11:12 Test: MUMPS VIRUS IgM ANTIBODY; Value: <0.80; Range: 0.00-0.79; Units: AU; Status: F Test Note: ; Negative < 0.80 Borderline 0.80 - 1.20 Positive > 1.20 . Note: The presence of IgM specific antibody should be interpreted in conjunction with the patient's clinical history and exposure risk when an acute infection is suspected. Performed at: [facility] [id number] Traveling Repair Accountant: Katt Coyle MD, Phone: [phone] Performed at: [facility] [address] [id number] Traveling Repair Accountant: Delvis Doran MD, Phone: [phone] Lab Order: Monoscreen; SPEC'M 10/05/16 11:12 Test: MONO SCRN; Value: NEGATIVE; Range: NEGATIVE; Status: F Lab Order: GATS (NEGATIVE STREP SCREEN); SPEC'M 10/05/16 11:07 Test: GATS CULTURE (NEG STREP SCR); Value: GATS RESULT POSITIVE FOR STREP PYOGENES (GROUP A); Abnormal: Abnormal; Status: F Test: GATS CULTURE (NEG STREP SCR); Value: ORGANISM 1: STREPTOCOCCUS PYOGENES GRP A; Status: F Test: GATS CULTURE (NEG STREP SCR); Value: STREPTOCOCCUS PYOGENES GRP A; Status: F Test: GATS CULTURE (NEG STREP SCR); Value: QUANTITY OF GROWTH MODERATE; Status: F Lab Order: PLATELET ESTIMATE; SPEC'M 10/05/16 11:12 Test: PLATELET ESTIMATE; Value: NORMAL; Range: NORMAL; Status: F Radiology Order: CT Neck With Contrast Test: CT Neck With Contrast REASON FOR EXAMINATION: Deformity/Swelling; CT NECK WITH CONTRAST:; ; HISTORY: Neck swelling.; ; CONTRAST: Isovue 370, 75 mL.; ; The naso-, lawanda- and hypopharynx, larynx and subglottic trachea are normal in; appearance. A cystic mass is present in the posterior posterior submandibular; space. The cyst is lateral to the right internal and external carotid arteries; and internal jugular vein and anteromedial to the right sternocleidomastoid; muscle. The cystic mass measures 2.7 cm in transverse by 3 cm in AP x 3.3 cm in; cephalocaudal dimensions. There is mass effect on the adjacent right; submandibular gland, right internal and external carotid arteries and right; internal jugular vein and right sternocleidomastoid muscle. The surrounding; tissue planes are intact. The parotid, left submandibular and thyroid glands are; normal. Small lymph nodes, less than 1 cm in size are present in the posterior; triangles, left internal jugular chain, submandibular and submental areas. The; lung apices are clear. The visualized sinuses are clear.; ; IMPRESSION:; ; There is a cystic right neck mass in the posterior right submandibular space as; described above. 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 kr3 12:56 Discharge ordered by Provider. ef1 13:05 Discharge Assessment: Patient awake, alert and oriented x 3. No cognitive and/or mcp functional deficits noted. Patient verbalized understanding of disposition instructions. patient administered narcotics - no. The following High Risk Discharge criteria are identified: None. Discharged to home ambulatory. Condition: stable. Discharge instructions given to patient, Instructed on discharge instructions, follow up and referral plans. medication usage, Demonstrated understanding of instructions, medications, Pt was receptive of discharge instructions/ teaching. Prescriptions given X 2. Property sent home with patient. 13:05 Patient left the ED. [facility] Addendum: 10/08/2016 10:09 Narrative: GATSNEG culture report received and reviewed by Dr. Donis. No [facility] orders received. Signatures: Dispatcher [employer] EDMS Amparo Self, RN RN Lisa Machado, PERINATAL BREASTFEEDING ASSISTANT PERINATAL BREASTFEEDING ASSISTANT jam1 Ignacia Hester, Reg Reg Tootie DenisRN RN kr3 Karol Rodriguez, PA-C PA-C ef1 Elvie Cordoba RN RN hs1 Shaylee Byrd RN RN jc4 Sandy Nava, PERINATAL BREASTFEEDING ASSISTANT PERINATAL BREASTFEEDING ASSISTANT ct3 Edith Singh, PERINATAL BREASTFEEDING ASSISTANT PERINATAL BREASTFEEDING ASSISTANT rs6 Nano Harvey jp5 Chart Complete MTDD
--- NOTE | 2016-10-08 11:13 | EDDOCDS ---
Physician Documentation [facility] Name: Marga Trujillo Age: 31 yrs Sex: Female : 1985 Arrival Date: 10/05/2016 Time: 09:58 Bed I5 / M5 Private MD: Celestino Redding Disposition: 10/05/16 12:56 Discharged to Home/Self Care. 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 - Condition is Stable. - Prescriptions for Ibuprofen 800 mg Oral Tablet - take 1 tablet by ORAL route every 8 hours As needed take with food; 30 tablet. Zithromax 250 mg Oral Tablet - take 1 tablet by ORAL route once daily start tomorrow; 4 tablet. - Medication Reconciliation, Local Pharmacy Hours form. - Follow up: Junior Castro; When: 1 - 2 days; Reason: Further diagnostic work-up, Recheck today's complaints, Continuance of care. Follow up: Emergency Department; Reason: Worsening of conditions. - Problem is new. - Symptoms have improved. Historical: - Allergies: Keflexunsure; PENICILLINS (Swelling); - Home Meds: 1. none - PMHx: none; - PSHx: Appendectomy; - Social history: Smoking status: Patient uses tobacco products, heavy tobacco smoker. No barriers to communication noted, The patient speaks fluent East Timorese, Speaks appropriately for age. - Family history: Not pertinent. - : The pt / caregiver states he / she is not on anticoagulants. Home medication list is obtained from the patient. - Exposure Risk Screening:: None identified. 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 3 in. (160.02 cm) (R); Pain 0/10; 13:01 BP 123 / 71; Pulse 54; Resp 18; Temp 97.8; Pulse Ox 99% ; Pain 10/10; jam1 10:00 Body Mass Index 29.23 (74.84 kg, 160.02 cm) ct3 MDM: 10:45 Strep Screen, Nursing ordered. ef1 10:54 IV Saline Lock ordered. ef1 10:55 CBC with Diff Ordered. EDMS 10:55 Complete Comphrensive Metabolic Ordered. EDMS 10:55 CT Neck With Contrast Ordered. EDMS 10:57 Mumps Virus Igg Antibody Ordered. EDMS 10:57 Mumps Virus Igm Antibody Ordered. EDMS 11:01 Monoscreen Ordered. EDMS 11:12 GATS (NEGATIVE STREP SCREEN) Ordered. EDMS 11:24 [facility] [place] Agreement was scanned into [employer] and attached to record. jp5 11:24 Financial registration complete. jp5 11:52 Complete Comphrensive Metabolic Reviewed. ef1 11:52 Monoscreen Reviewed. ef1 12:02 DIFFERENTIAL NO CHARGE Ordered. EDMS 12:02 PLATELET ESTIMATE Ordered. EDMS 12:43 CBC with Diff Reviewed. ef1 12:43 PLATELET ESTIMATE Reviewed. ef1 12:57 azithromycin 500 mg PO once ordered. ef1 14:50 T-Sheet-- Draft Copy was scanned into [employer] and attached to record. gb 14:51 Radiology Report was scanned into [employer] and attached to record. gb Administered Medications: 13:04 Drug: azithromycin 500 mg [azithromycin 250 mg tablet (2 tabs)] Route: PO; [facility] Signatures: Dispatcher [employer] Amparo Sheridan, SHREYAS PRITCHETT [facility] Ignacia Hester, Carlos Gonzalez Tootie Joseph RN RN kr3 Karol Rodriguez, PA-C PA-C ef1 Elvie Cordoba, RN RN 1 Nano Harvey jp5 The chart was reviewed and I authenticate all verbal orders and agree with the evaluation and treatment provided.Attachments: 11:24 [facility] Payment Agreement jp5 14:50 T-Sheet-- Draft Copy gb Chart Complete MTDD
== END 2016-10-05 13:05 | disposition home or self-care (01) ==
LOC: M ED 09:58
DX: Q18.0 Sinus, fistula and cyst of branchial cleft (principal); F17.210 Nicotine dependence, cigarettes, uncomplicated; Z88.1 Allergy status to other antibiotic agents; Z88.0 Allergy status to penicillin
CPT/HCPCS: 36415; 70491; 80053; 85025; 86308; 86735; 87880; 99284; Q9967

== ENCOUNTER → 2016-12-15 | Day surgery (SDC) | payer OTHER ==
[~2016-12-15] VITALS: Ht 160 cm; Wt 74.8 kg
[~2016-12-15] MED LIST: LR 1,000 ML IV SCH; NO HOME MEDS; dexameTHASONE 4 MG/ML 1ML VIAL (J1100) IV ONE
[2016-12-15 12:20] VITALS: BP 115/73
[2016-12-15 12:33] LABS: CONTROL LINE UCG INT CTR LINE PRESENT
== END | disposition home or self-care (01) ==
LOC: M SDC 11:25
PROVIDERS: ATTEND Otolaryngology
DX: Z53.09 Procedure and treatment not carried out because of other contraindication (principal); Z33.1 Pregnant state, incidental

== ENCOUNTER → 2017-01-05 | Outpatient (CLI) | payer OTHER ==
[~2017-01-05] MED LIST changes: -LR 1,000 ML IV SCH; -dexameTHASONE 4 MG/ML 1ML VIAL (J1100) IV ONE
[2017-01-05 14:13] LABS: DIFF SLIDE NUMBER 238; MEAN CORPUSCULAR HEMOGLOBIN 28.6 pg (27.0-33.0); MEAN CORPUSCULAR HGB CONC 32.5 g/dl (32.0-36.5); PLATELET COUNT, AUTOMATED 345 k/mm3 (150-450); RED CELL DISTRIBUTION WIDTH 13.2 % (11.5-14.5); WHITE BLOOD COUNT 15.3 K/mm3 (4.0-10.0)
[2017-01-05 14:49] LABS: BASOPHILS 2 % (0-4)
[2017-01-05 14:50] LABS: ANISOCYTOSIS 1+
[2017-01-05 15:00] LABS: HBsAg Prenatal NEGATIVE (NEGATIVE)
== END ==
LOC: M LAB 12:59
PROVIDERS: ATTEND Advanced Practice Midwife
DX: Z34.81 Encounter for supervision of other normal pregnancy, first trimester (principal)

== ENCOUNTER → 2017-01-07 | Outpatient (REF) | payer OTHER | LOC: M LAB REF 09:00 | PROVIDERS: ATTEND Advanced Practice Midwife | DX: Z34.01 Encounter for supervision of normal first pregnancy, first trimester (principal) ==

== ENCOUNTER 2017-03-06 13:04 | Emergency (ER) | payer OTHER ==
[~2017-03-06] VITALS: Ht 160 cm; Wt 73.4 kg
[2017-03-06 13:04] VITALS: BP 114/67
[2017-03-06] MEDS ORDERED: CLEO300C2 PO (14:06)
[2017-03-06] MEDS ORDERED: CLINDAMYCIN 150 MG CAP PO ONE ×2 (14:15)
== END 2017-03-06 15:03 | disposition home or self-care (01) ==
LOC: M ED 13:55
DX: L03.314 Cellulitis of groin (principal); F17.200 Nicotine dependence, unspecified, uncomplicated; Z79.899 Other long term (current) drug therapy; Z88.0 Allergy status to penicillin; Z88.1 Allergy status to other antibiotic agents

== ENCOUNTER 2017-03-12 23:52 | Emergency (ER) | payer OTHER ==
[~2017-03-12] VITALS: Ht 160 cm; Wt 73.6 kg
[~2017-03-12 23:52] MED LIST changes: +CLEO300C2 PO
[2017-03-13 00:20] VITALS: BP 125/65
[2017-03-13] MEDS ORDERED: MULT1CHW39 PO (00:23)
== END 2017-03-13 03:44 | disposition left against medical advice (07) ==
LOC: M ED 03-13 03:29
DX: R21 Rash and other nonspecific skin eruption (principal); Z53.29 Procedure and treatment not carried out because of patient's decision for other reasons

== ENCOUNTER → 2017-03-14 | Outpatient (CLI) | payer OTHER ==
[~2017-03-14] MED LIST changes: +MULT1CHW39 PO
--- NOTE | 2017-03-15 04:16 | REP ---
Clinical: Anatomical evaluation. Comparison: None . Findings: Examination demonstrates a single live intrauterine in cephalic presentation. motion is identified by technologist. Placenta is noted anteriorly and grade zero without evidence for placenta previa or abruption. Amniotic fluid volume is normal. Cervix measures 4.0 cm in length and appears closed. No evidence for nuchal cord. Gestational age by LMP 16 weeks 5 days with CAROLANN 08/24/2017 . Gestational age by current measurements 18 weeks 0 days with CAROLANN 08/15/2017 . FHR equals 144 beats per minute. BPD 4.2 cm 18 weeks 4 days HC 14.9 cm 18 weeks 0 days AC 12.0 cm 17 weeks 5 days FL 2.7 cm 18 weeks 1 day HL 2.5 cm 17 weeks 6 days HC/AC ratio 1.23 Estimated weight 217 grams ( 43rd percentile based on age by current measurements ). Anatomical assessment demonstrates normal structures including cranium, choroid plexus, cavum, cerebellum/posterior fossa, nose/lips, lungs, diaphragm, stomach, cord insertion, kidneys/bladder, spine, and extremities. Limited evaluation of the facial profile, heart/ventricular outflow tracts, and three-vessel cord noted Impression: 1. Single live intrauterine in cephalic presentation demonstrating growth as described above. 2. Anatomical limitations may warrant reevaluation and follow-up. Remainder examination appears normal. Signed by Bravo Lee MD 03/15/2017 04:07 A
== END ==
LOC: M SMT 14:56
PROVIDERS: ATTEND Advanced Practice Midwife
DX: Z34.82 Encounter for supervision of other normal pregnancy, second trimester (principal)

== ENCOUNTER → 2017-04-19 | Outpatient (CLI) | payer OTHER ==
[~2017-04-19] MED LIST changes: +ACET50TA PO; +BACT800T5 PO
--- NOTE | 2017-04-20 05:04 | REP ---
Clinical: Anatomical evaluation. Comparison: 03/14/2017 . Findings: Examination demonstrates a single live intrauterine in cephalic presentation. motion is identified by technologist. Placenta is noted anteriorly and grade one without evidence for placenta previa or abruption. Amniotic fluid volume is normal. Cervix measures 4.8 cm in length and appears closed. Nuchal cord is appreciated. Gestational age by LMP 21 weeks 6 days with CAROLANN 08/24/2017 . Gestational age by current measurements 22 weeks 6 days with CAROLANN 08/17/2017 . FHR equals 139 beats per minute. Estimated weight 591 grams ( 51st percentile). Anatomical assessment demonstrates normal structures including cranium, choroid plexus, cavum, cerebellum/posterior fossa, facial features, lungs, diaphragm, stomach, cord insertion/three-vessel cord, kidneys/bladder, spine, and extremities. Impression: 1. Single live intrauterine in cephalic presentation demonstrating appropriate interval growth. With the exception of heart/ventricular outflow tract, anatomical assessment is complete and normal. 2. Nuchal cord noted. Signed by Bravo Lee MD 04/20/2017 04:55 A
== END ==
LOC: M SMT 12:57
PROVIDERS: ATTEND Obstetrics & Gynecology
DX: Z34.82 Encounter for supervision of other normal pregnancy, second trimester (principal)

== ENCOUNTER → 2017-05-06 | Outpatient (CLI) | payer OTHER ==
--- NOTE | 2017-05-06 11:42 | REP ---
Obstetric ultrasound for follow-up of anatomy: The prior study dated 04/19/2017 could not to adequately demonstrate the four-chamber view of the heart toward the cardiac ventricular outflow tracts. The study today is for follow-up of these structures. There is a single intrauterine gestation in a vertex presentation. There is movement and cardiac activity. The heart rate is 136 beats per minute. The placenta is anterior. There is no placenta previa or abruptio. Placenta is grade 1 maturity. Subjectively the amniotic fluid volume is normal. The cervix is 3.6 cm in length. The maternal adnexa and cul-de-sac are unremarkable. By the ultrasound today gestational age is 25 weeks 1 day with an CAROLANN of 08/18/2017. Gestational age by the first ultrasound is 25 weeks 4 days and by LMP 24 weeks 2 days. weight is similar and 6 grams (1 pound, 12 ounces). This is the 35th percentile for 25 weeks 4 days and 74 percentile for 24 weeks 2 days. On the study today the four-chamber view of the heart and the cardiac right and left ventricular outflow tracts are adequately demonstrated and are unremarkable. The remainder of the anatomy is unremarkable today and was unremarkable previously. Impression: There are no anomalies. Signed by Jose Rosenthal MD 05/06/2017 11:33 A
== END ==
LOC: M SMT 09:37
PROVIDERS: ATTEND Advanced Practice Midwife
DX: Z34.83 Encounter for supervision of other normal pregnancy, third trimester (principal)

== ENCOUNTER → 2017-05-20 | Outpatient (CLI) | payer OTHER ==
[2017-05-20 17:11] LABS: ADD MANUAL DIFFER YES; DIFF SLIDE NUMBER 228; MEAN CORPUSCULAR HEMOGLOBIN 31.4 pg (27.0-33.0); MEAN CORPUSCULAR HGB CONC 35.2 g/dl (32.0-36.5); MEAN CORPUSCULAR VOLUME 89.2 fl (80.0-96.0); PLATELET COUNT, AUTOMATED 293 k/mm3 (150-450); RED CELL DISTRIBUTION WIDTH 12.7 % (11.5-14.5); WHITE BLOOD COUNT 14.6 K/mm3 (4.0-10.0)
[2017-05-20 17:46] LABS: EOSINOPHILS 1 % (0-5)
== END ==
LOC: M SMT 13:06
PROVIDERS: ATTEND Advanced Practice Midwife
DX: Z34.83 Encounter for supervision of other normal pregnancy, third trimester (principal)

== ENCOUNTER 2017-07-02 02:40 | Outpatient (CLI) | payer OTHER ==
[2017-07-02] VITALS (8 sets, daily range): BP systolic 101–136; BP diastolic 57–74
[~2017-07-02] VITALS: Ht 160 cm; Wt 77.7 kg
[~2017-07-02 02:40] MED LIST changes: -ACET50TA PO; -BACT800T5 PO
[2017-07-02 04:05] LABS: BASO % 0.1 % (0.0-1.0); IMMATURE GRANULOCYTE % 1.2 % (0-0); LYMPH # 1.3 10^3/uL (1.5-4.5); LYMPH % 6.1 % (24.0-44.0); MEAN CORPUSCULAR HEMOGLOBIN 30.6 pg (27.0-33.0); MEAN CORPUSCULAR HGB CONC 35.3 g/dl (32.0-36.5); MEAN CORPUSCULAR VOLUME 86.9 fl (80.0-96.0); MONO # 1.4 10^3/uL (0.0-0.8); MONO % 6.2 % (0.0-5.0); NEUTROPHILS # 18.8 10^3/uL (1.8-7.7); NEUTROPHILS % 86.4 % (36.0-66.0); PLATELET COUNT, AUTOMATED 241 10^3/uL (150-450); RED CELL DISTRIBUTION WIDTH 13.2 % (11.5-14.5); WHITE BLOOD COUNT 21.8 10^3/uL (4.0-10.0)
[2017-07-02 04:34] LABS: ALBUMIN 2.6 GM/DL (3.2-5.2); ALKALINE PHOSPHATASE 143 U/L (45-117); ALT/SGPT 19 U/L (12-78); ANION GAP 9 MEQ/L (8-16); AST/SGOT 16 U/L (15-37); BILIRUBIN,TOTAL 0.4 MG/DL (0.2-1.0); BLOOD UREA NITROGEN 4 MG/DL (7-18); CARBON DIOXIDE LEVEL 25 MEQ/L (21-32); CHLORIDE LEVEL 102 MEQ/L (98-107); GLOMERULAR FILTRATION RATE > 60.0 (>60); GLUCOSE, FASTING 91 MG/DL (70-105); POTASSIUM SERUM 3.9 MEQ/L (3.5-5.1); SODIUM LEVEL 136 MEQ/L (136-145); TOTAL PROTEIN 6.3 GM/DL (6.4-8.2)
[2017-07-02] MEDS ORDERED: ACETAMINOPHEN TAB 650MG DOSE (2X325MG) PO ONE (05:15)
[2017-07-02] MEDS ORDERED: ACETAMINOPHEN TAB 650MG DOSE (2X325MG) As Ordered ONE (05:15)
[2017-07-02] MEDS: LR 1,000 ML IV SCH ×3 (05:49→19:41)
[2017-07-02] MEDS ORDERED: VANCOMYCIN HCL 1,000 MG, VIAL MATE ADAPTER 1 EACH in D5W 250 ML IV SCH (08:00)
[2017-07-02] MEDS: ONDANSETRON 4MG/2ML VIAL (J2405) IV PRN ×2 (09:05→17:43)
[2017-07-02] MEDS: ACETAMINOPHEN 500 MG TAB PO PRN ×2 (11:21→18:26)
--- NOTE | 2017-07-02 13:09 | HPE ---
DATE OF ADMISSION: 07/02/2017 HISTORY: 32-year-old, (G) 2, para (P) 0-0-1-0 female, at 34-0/7 weeks gestation by last menstrual period (LMP) consistent with an 8 week ultrasound with estimated date of confinement (EDC) 08/13/2017 presents with subjective fevers at home. On the evening of admission, she had several episodes of nausea and vomiting. She had lower abdominal pain as well as right-sided lower back pain. She did not actually physically measure her temperature but felt feverish and had some sweats. COURSE: The patient initiated care at 8 weeks gestation on 01/07/2017, and her first trimester blood pressure was 116/68, weight 168 pounds. course unremarkable up until this point. MEDICAL HISTORY: Noncontributory. SURGERIES: Appendectomy in 1996. ALLERGIES: 1. PENICILLIN. 2. KEFLEX. SOCIAL HISTORY: The father of the baby is involved. The patient smokes one pack of cigarettes per day even during . She denies alcohol or drug use. FAMILY HISTORY: Noncontributory. PHYSICAL EXAMINATION: Blood pressure is 136/74. Respiratory rate 18. Pulse 108. Temperature 101.2 Fahrenheit. She appears flushed, uncomfortable. Head and neck exam is normal. Lungs are clear to auscultation. Heart is regular rate and rhythm. Abdomen is nontender. She has mild right costovertebral angle (CVA) tenderness. heart tones are category 1. Contractions rare. Extremities nontender. Trace edema. LABS: Blood type O positive. Rubella immune. RPR nonreactive. Hepatitis B and C negative. HIV negative. Diabetes screen 81. White blood count on admission 21.8. Urinalysis shows numerous white blood cells, occasional red blood cells, positive leukocyte esterase. ASSESSMENT: 32-year-old, 2, para 0-0-1-0 female, at 34-0/7 weeks gestation presents with fevers, nausea and vomiting, and back pain. Clinical picture consistent with pyelonephritis. Plan is to admit to for intravenous (IV) antibiotics. Plan to send urine and blood cultures. Patient will be observed closely.
[2017-07-02] MEDS: PERCOCET 5MG/325MG TAB PO PRN (13:52)
[2017-07-02] MEDS: AZTREONAM 1 GM in D5W 50 ML IV SCH (18:43)
[2017-07-03] MEDS: ONDANSETRON 4MG/2ML VIAL (J2405) IV PRN (00:53)
[2017-07-03] MEDS: ACETAMINOPHEN 500 MG TAB PO PRN ×4 (00:54→20:53)
[2017-07-03] MEDS: AZTREONAM 1 GM in D5W 50 ML IV SCH ×3 (02:18→18:32)
[2017-07-03] MEDS: LR 1,000 ML IV SCH (03:41)
[2017-07-03 06:29] VITALS: BP 110/63
[2017-07-03 10:00] VITALS: BP 104/56
[2017-07-03 14:00] VITALS: BP 114/72
[2017-07-03] MEDS: PERCOCET 5MG/325MG TAB PO PRN (20:54)
[2017-07-03 22:00] VITALS: BP 110/58
[2017-07-04] MEDS: AZTREONAM 1 GM in D5W 50 ML IV SCH (03:40)
[2017-07-04] MEDS: ACETAMINOPHEN 500 MG TAB PO PRN (04:22)
[2017-07-04 06:00] VITALS: BP 118/56
[2017-07-04 06:40] LABS: BASO % 0.2 % (0.0-1.0); EOS # 0.1 10^3/uL (0.0-0.50); EOS % 0.4 % (0.0-3.0); IMMATURE GRANULOCYTE % 0.7 % (0-0); LYMPH # 1.9 10^3/uL (1.5-4.5); MEAN CORPUSCULAR HEMOGLOBIN 30.3 pg (27.0-33.0); MEAN CORPUSCULAR VOLUME 86.5 fl (80.0-96.0); MONO # 1.4 10^3/uL (0.0-0.8); MONO % 7.9 % (0.0-5.0); NEUTROPHILS # 13.6 10^3/uL (1.8-7.7); NEUTROPHILS % 79.8 % (36.0-66.0); PLATELET COUNT, AUTOMATED 194 10^3/uL (150-450); RED CELL DISTRIBUTION WIDTH 13.3 % (11.5-14.5)
[2017-07-04 07:10] LABS: ALBUMIN 1.8 GM/DL (3.2-5.2); ALBUMIN/GLOBULIN RATIO 0.47 (1.00-1.93); ALKALINE PHOSPHATASE 118 U/L (45-117); ALT/SGPT 18 U/L (12-78); ANION GAP 9 MEQ/L (8-16); AST/SGOT 15 U/L (15-37); BILIRUBIN,TOTAL 0.3 MG/DL (0.2-1.0); BLOOD UREA NITROGEN 5 MG/DL (7-18); CALCIUM LEVEL 8.2 MG/DL (8.5-10.1); CARBON DIOXIDE LEVEL 22 MEQ/L (21-32); CHLORIDE LEVEL 107 MEQ/L (98-107); CREATININE FOR GFR 0.55 MG/DL (0.55-1.02); GLOMERULAR FILTRATION RATE > 60.0 (>60); GLUCOSE, FASTING 74 MG/DL (70-105); POTASSIUM SERUM 3.5 MEQ/L (3.5-5.1); SODIUM LEVEL 138 MEQ/L (136-145); TOTAL PROTEIN 5.6 GM/DL (6.4-8.2)
[2017-07-04] MEDS ORDERED: ACET50TA PO (09:55)
[2017-07-04 10:05] VITALS: BP 112/64
--- NOTE | 2017-07-04 10:39 | IPNPDOC ---
Text Note Date of Service The patient was seen on 07/04/17. NOTE Reviewed pt status with Dr Morgan. Continue with discharge. OK to start PO antibiotic today prior to discharge. Keep appt this week. Warnings reviewed. VS,Fishbone, I+O VS, Fishbone, I+O Laboratory Tests 07/04/17 06:19 Red Blood Count 3.63 L, Mean Corpuscular Volume 86.5, Mean Corpuscular Hemoglobin 30.3, Mean Corpuscular Hemoglobin Concent 35.0, Red Cell Distribution Width 13.3, Neutrophils (%) (Auto) 79.8 H, Lymphocytes (%) (Auto) 11.0 L, Monocytes (%) (Auto) 7.9 H, Eosinophils (%) (Auto) 0.4, Basophils (%) ( Auto) 0.2, Neutrophils # (Auto) 13.6 H, Lymphocytes # (Auto) 1.9, Monocytes # ( Auto) 1.4 H, Eosinophils # (Auto) 0.1, Basophils # (Auto) 0.0, Calcium Level 8.2 L, Aspartate Amino Transf (AST/SGOT) 15, Alanine Aminotransferase (ALT/SGPT ) 18, Alkaline Phosphatase 118 H, Total Bilirubin 0.3, Total Protein 5.6 L, Albumin 1.8 #L Vital Signs Date Time Temp Pulse Resp B/P (MAP) Pulse Ox O2 Delivery O2 Flow Rate FiO2 07/04/17 10:05 98.1 97 18 112/64 (80) 07/04/17 06:00 98 Room Air Sindy Schofield CNM Jul 04, 2017 10:39
[2017-07-04] MEDS ORDERED: BACTRIM 160MG/800MG DS TAB PO ONE (11:00)
[2017-07-08 10:13] LABS: GC Carboxy THC 39 ng/mL (Cutoff=10)
[2017-07-24] MEDS ORDERED: BACT800T5 PO ×2 (10:08→10:31)
== END 2017-07-04 11:10 | disposition home or self-care (01) ==
LOC: M LDO 02:40 → M OBS 08:17 → M LDO 07-04 11:10
PROVIDERS: ATTEND Specialist
DX: M54.5 Low back pain (principal); R50.9 Fever, unspecified
CPT/HCPCS: 36415; 80053; 80307; 80349; 81001; 83690; 85025; 87040; 87088; J2405; J3370

== ENCOUNTER → 2017-07-19 | Outpatient (REF) | payer OTHER ==
[~2017-07-19] MED LIST changes: +ACET50TA PO; +BACT800T5 PO; +IBUP-1114 PO; +IBUP80TA PO; +PERC5TAB12 PO; +PRENTAB9 PO
== END ==
LOC: M LAB REF 12:47
PROVIDERS: ATTEND Advanced Practice Midwife
DX: Z34.83 Encounter for supervision of other normal pregnancy, third trimester (principal)

== ENCOUNTER 2017-08-06 09:09 | Inpatient (IN) | payer OTHER ==
[2017-08-06] VITALS (11 sets, daily range): BP systolic 110–138; BP diastolic 58–89
[~2017-08-06] VITALS: Ht 160 cm; Wt 78.5 kg
[~2017-08-06 09:09] MED LIST changes: -IBUP-1114 PO; -IBUP80TA PO; -PERC5TAB12 PO; -PRENTAB9 PO
[2017-08-06 11:41] LABS: MEAN CORPUSCULAR HEMOGLOBIN 29.6 pg (27.0-33.0); MEAN CORPUSCULAR HGB CONC 34.2 g/dl (32.0-36.5); MEAN CORPUSCULAR VOLUME 86.5 fl (80.0-96.0); PLATELET COUNT, AUTOMATED 414 10^3/uL (150-450); RED CELL DISTRIBUTION WIDTH 13.9 % (11.5-14.5); WHITE BLOOD COUNT 19.7 10^3/uL (4.0-10.0)
[2017-08-06] MEDS: miSOPROStol 50 MCG 1/2 TAB (S0191) PO SCH ×4 (11:44→20:24)
--- NOTE | 2017-08-06 13:17 | HPE ---
DATE OF ADMISSION: 08/06/2017 HISTORY: A 32-year-old G2, P0-0-1-0 female at 39-0/7 weeks' gestation by last menstrual period (LMP) consistent with 8-week ultrasound, estimated date of confinement (EDC) 08/13/2017 presents for labor induction. The patient has had two episodes of pyelonephritis during and continues to have back discomfort. COURSE: The patient initiated care on 12/28/2016 at 8 weeks' gestation. Her first-trimester blood pressure was 116/68. Weight was 168 pounds. The patient was admitted from 07/02/2017 through 07/05/2017 for pyelonephritis. She was treated with aztreonam and subsequently converted to oral Bactrim. She was diagnosed with Klebsiella. She did well until she had to be readmitted from 07/21/2017 though 07/24/2017 due to the same problem, and she was started back on intravenous (IV) antibiotics; and subsequently, urine culture produced the same result as the previous admission. She was continued on prophylactic antibiotics through the remainder of the . MEDICAL HISTORY: None. SURGICAL HISTORY: Appendectomy in 1996. ALLERGIES: PENICILLIN, KEFLEX. SOCIAL HISTORY: The father of the baby is involved. The patient denies cigarettes, alcohol or drug use. She lives in [place]. FAMILY HISTORY: The patient's father has muscular dystrophy. PHYSICAL EXAMINATION: Blood pressure 116/70, weight 169. She is in no apparent distress. HEAD AND NECK EXAMINATION: Normal. LUNGS: Clear. HEART: Regular rate and rhythm. ABDOMEN: Nontender, gravid. No costovertebral angle (CVA) tenderness. heart tones category 1. Cervix fingertip dilated, 70% effaced, -2 station, vertex. Contractions irregular. EXTREMITIES: Nontender. LABORATORIES: Blood type O positive, rubella immune, rapid plasma reagin (RPR) nonreactive. Hepatitis B and C negative. HIV negative. The patient is group B streptococcus (GBS) negative on 07/19/2017. ASSESSMENT: A 32-year-old G1, P0-0-1-0 female at 39-0/7 weeks' gestation presents for labor induction. The patient is admitted on 08/06/2017. The risks of induction were discussed.
[2017-08-06] MEDS ORDERED: FAMOTIDINE 20 MG TAB PO ONE (14:30)
[2017-08-06] MEDS ORDERED: OXYTOCIN DRIP 30 UNITS in APPROPRIATE DILUENT 1 EA IV SCH (23:15)
[2017-08-07] VITALS (45 sets, daily range): BP systolic 98–133; BP diastolic 57–88
[2017-08-07] MEDS ORDERED: PROMETHAZINE INJ 25 MG/ML VIAL (J2550) IV ONE (01:15)
[2017-08-07] MEDS ORDERED: BUTORPHANOL 2 MG/ML INJ (J0595) IV ONE (01:15)
[2017-08-07] MEDS: LR 1,000 ML IV SCH ×3 (01:21→09:48)
[2017-08-07] MEDS ORDERED: FENTANYL 2MCG/ML ROPIVACAINE 0.2% IN 0.9% NACL 200ML IVBAG As Ordered ONE (08:24)
[2017-08-07] MEDS: PRENATAL VITAMINS CHEWABLE TABLET PO SCH (09:00)
[2017-08-07] MEDS ORDERED: EPIDURAL/PCA KEYS XX PRN (09:45)
[2017-08-07] MEDS ORDERED: ONDANSETRON 4MG/2ML VIAL (J2405) IV PRN ×4 (09:45→17:15)
[2017-08-07] MEDS ORDERED: FENTANYL/ROPIVACAINE/NACL BAG 200 ML EPIDURAL SCH (09:45)
[2017-08-07] MEDS ORDERED: ePHEDrine SULFATE 25 MG/5 ML(5MG/ML) SYRINGE IV PRN (09:45)
[2017-08-07] MEDS ORDERED: EPIDURAL COMMENT XX SCH (09:45)
[2017-08-07] MEDS ORDERED: diphenhydrAMINE INJ 50MG/ML VIAL (J1200) IV PRN ×2 (09:45→17:15)
[2017-08-07] MEDS ORDERED: NALOXONE INJ 0.4 MG/1 ML VIAL (J2310) IV PRN ×3 (09:45→16:07)
[2017-08-07] MEDS ORDERED: LACTATED RINGER'S 1000 ML IV PRN (09:45)
[2017-08-07] MEDS ORDERED: REFRIGERATOR IV KEYS XX PRN (09:45)
[2017-08-07] MEDS ORDERED: CLINDAMYCIN 900 MG/50 ML PREMIX BAG As Ordered ONE (15:03)
[2017-08-07] MEDS ORDERED: BICITRA 30ML SOLN UDC As Ordered ONE (15:03)
[2017-08-07] MEDS ORDERED: BICITRA 30ML SOLN UDC PO ONE (15:15)
[2017-08-07] MEDS ORDERED: CLINDAMYCIN 900 MG in APPROPRIATE DILUENT 1 EA IV ONE (15:15)
[2017-08-07] MEDS ORDERED: GENTAMICIN 80 MG in APPROPRIATE DILUENT 1 EA IV ONE (15:15)
[2017-08-07] MEDS ORDERED: MORPHINE PRES-FREE INJ 10 MG/10 ML VIAL (J2274) As Ordered ONE ×2 (15:21→15:58)
[2017-08-07] MEDS ORDERED: LIDOCAINE PRES-FREE 2% 10ML AMP As Ordered ONE (15:27)
[2017-08-07] MEDS ORDERED: OXYTOCIN INJ 10 UNITS/ML VIAL (J2590) As Ordered ONE (15:27)
[2017-08-07] MEDS ORDERED: METOCLOPRAMIDE INJ 10MG/2ML VIAL (J2765) IV PRN (16:07)
[2017-08-07] MEDS ORDERED: NALBUPHINE HCL 10 MG/ML AMP (J2300) IV PRN ×2 (16:07→17:15)
[2017-08-07] MEDS ORDERED: LR 1,000 ML IV SCH ×2 (16:51→17:15)
[2017-08-07] MEDS ORDERED: RHOGAM 300 MCG (1500 IU) INJ (J2790) IM SCH (17:00)
[2017-08-07] MEDS ORDERED: PERCOCET 5MG/325MG TAB PO PRN ×3 (17:00→17:15)
[2017-08-07] MEDS ORDERED: MEASLES,MUMPS,RUBELLA VACCINE INJ (MMR-II) (90707) SC SCH (17:00)
[2017-08-07] MEDS ORDERED: DOCUSATE SODIUM 100 MG CAP PO PRN (17:00)
[2017-08-07] MEDS ORDERED: OXYTOCIN DRIP 30 UNITS in APPROPRIATE DILUENT 1 EA IV ONE (17:00)
[2017-08-07] MEDS ORDERED: MEPERIDINE INJ 25 MG/ML VIAL (J2175) IV PRN (17:15)
[2017-08-07] MEDS ORDERED: fentaNYL 100 MCG/2 ML INJECTION (J3010) IV PRN (17:15)
[2017-08-07] MEDS ORDERED: HYDROmorphone HCL 1 MG/ML SYRINGE (J1170) IV PRN (17:15)
[2017-08-07] MEDS ORDERED: KETOROLAC 30 MG/ML VIAL (J1885) IV PRN (17:15)
[2017-08-07] MEDS: KETOROLAC 30 MG/ML VIAL (J1885) IV SCH (18:53)
[2017-08-08] MEDS: KETOROLAC 30 MG/ML VIAL (J1885) IV SCH ×3 (00:07→12:02)
[2017-08-08 02:00] VITALS: BP 126/71
[2017-08-08 05:36] VITALS: BP 106/63
[2017-08-08] MEDS ORDERED: PERC5TAB12 PO (06:26)
[2017-08-08 07:02] LABS: MEAN CORPUSCULAR HEMOGLOBIN 29.7 pg (27.0-33.0); MEAN CORPUSCULAR HGB CONC 34.3 g/dl (32.0-36.5); MEAN CORPUSCULAR VOLUME 86.5 fl (80.0-96.0); PLATELET COUNT, AUTOMATED 283 10^3/uL (150-450); RED CELL DISTRIBUTION WIDTH 13.8 % (11.5-14.5); WHITE BLOOD COUNT 22.4 10^3/uL (4.0-10.0)
[2017-08-08] MEDS: PRENATAL VITAMINS CHEWABLE TABLET PO SCH (07:29)
--- NOTE | 2017-08-08 08:00 | RO ---
DATE OF PROCEDURE: 08/07/2017 PREPROCEDURE DIAGNOSIS: 39+ weeks, arrest of dilation. POSTPROCEDURE DIAGNOSIS: 39+ weeks, arrest of dilation. PROCEDURE: Primary low transverse section. SURGEON: Dr. Sim Nguyen OUTSIDE SALES CONSULTANT: Dr. Fer Little ANESTHESIA: Spinal. ESTIMATED BLOOD LOSS: 500 mL. URINE OUTPUT: 100 mL. FINDINGS: 6 pound 1 ounce male infant, Apgars 8 and 9, in the right occiput posterior position. Normal uterus, fallopian tubes and ovaries. DESCRIPTION OF PROCEDURE: The patient was taken to the operating room where spinal anesthesia was induced. She was prepped and draped in sterile fashion in the supine position. A Emery catheter was placed. A Pfannenstiel skin incision was made with the scalpel and carried through to the fascia. The fascia was then extended and nicked. The fascia was dissected off the rectus muscles. The peritoneal cavity was entered. A bladder flap was created. A curvilinear incision was made in the lower uterine segment until clear fluid was noted. This was extended manually. The was delivered from the vertex position without difficulty. The shoulders delivered with ease. The infant cried spontaneously and was handed to the nurses. The placenta was expressed. The uterus was exteriorized and cleared of clots and debris. The uterine incision closed with #0 Vicryl in a running locked fashion. A second imbricating layer of #0 Vicryl was placed. The uterus was placed back in the abdominal cavity. The peritoneum was closed with #2-0 Vicryl. The fascia was closed with #0 Vicryl in a running fashion. The deep layer was irrigated and closed with #3-0 chromic. The skin was closed with #4-0 Monocryl subcuticular sutures. Sponge, instrument and needle counts were correct.
[2017-08-08 10:27] VITALS: BP 112/55
[2017-08-08 14:00] VITALS: BP 115/65
[2017-08-08 18:04] VITALS: BP 113/60
[2017-08-08] MEDS: IBUPROFEN 800 MG TAB PO SCH (19:40)
[2017-08-09] MEDS: IBUPROFEN 800 MG TAB PO SCH (03:42)
[2017-08-09 06:00] VITALS: BP 111/63
--- NOTE | 2017-08-09 06:53 | DS.PDOC ---
Discharge Summary General Date of Admission Aug 06, 2017 at 09:09 Date of Discharge 08/09/17 Primary Care Physician: TEOFILO MEEK MD Attending Physician: Sindy Schofield CNM Discharge Summary PROCEDURES PERFORMED DURING STAY: Primary low transverse section ADMITTING DIAGNOSES: 1. at term for induction of labor 2. Pyelonephritis DISCHARGE DIAGNOSES: 1. Primary section for arrest of dilation 2. Pyelonephritis COMPLICATIONS/CHIEF COMPLAINT: Induction. Arrest of dilation and primary section HISTORY OF PRESENT ILLNESS: 32yo G2now [id number] CAROLANN 08/13/17. Admitted 08/06/17 for induction of labor due to pyelonephritis during the . Primary section was performed by Dr Meek for arrest of dilation. HOSPITAL COURSE: Uneventful. Adequate pain control on oral medications. Bottle feeding. Tolerating regular diet. Voiding and passing flatus. DISCHARGE MEDICATIONS: Please see below. ALLERGIES: Please see below. PHYSICAL EXAMINATION ON DISCHARGE: VITAL SIGNS: Please see below. GENERAL: NAD CARDIOVASCULAR EXAMINATION: HRR RESPIRATORY EXAMINATION: CTA ABDOMINAL EXAMINATION: Fundus firm, nontender. Wound well approximated without edema or s/s infection EXTREMITIES: Negative SKIN: Intact NEUROLOGICAL EXAMINATION: Intact LABORATORY DATA: Please see below. PROGNOSIS: Good ACTIVITY: Pelvic rest. Gradual resumption of activity DIET: Regular DISCHARGE PLAN: Home today. Routine precautions. RTO 2wks/6wks DISPOSITION: Home. DISCHARGE INSTRUCTIONS: 1. Pelvic rest. Continue vitamins. Rx percocet and ibuprofen prn. Call office with fever over 100, N/V, chills, foul lochia, wound exudate, any concerns. 2. RTO 2wks/6wks DISCHARGE CONDITION: Stable Vital Signs/I&Os Vital Signs Date Time Temp Pulse Resp B/P (MAP) Pulse Ox O2 Delivery O2 Flow Rate FiO2 08/09/17 06:00 98.9 77 18 111/63 (79) 08/08/17 18:04 100 Room Air Laboratory Data Labs 24H Laboratory Tests 2 08/08/17 06:51: Nucleated Red Blood Cells % (auto) 0.0 CBC/BMP Laboratory Tests 08/08/17 06:51 Red Blood Count 3.47 L, Mean Corpuscular Volume 86.5, Mean Corpuscular Hemoglobin 29.7, Mean Corpuscular Hemoglobin Concent 34.3, Red Cell Distribution Width 13.8 Discharge Medications Scheduled Trimethoprim/Sulfamethoxazole (Bactrim Ds 800-160 mg) 1 Tab Tab, 1 TAB PO BID, ( Reported) Scheduled PRN Acetaminophen (Mapap) 500 Mg Tab, 1,000 MG PO Q6HP PRN for PAIN OR FEVER, ( Reported) Oxycodone/Acetaminophen (Percocet 5-325 mg) 1 Tab Tab, 1-2 TAB PO Q6H PRN for PAIN Allergies Coded Allergies: Penicillins (Verified Allergy, Severe, THROAT AND TONGUE SWELLS, 11/30/16) Cephalexin (Unverified Allergy, Unknown, unsure, 11/30/16) Sindy Schofield CNM Aug 09, 2017 06:53
[2017-08-09] MEDS ORDERED: IBUP80TA PO (06:55)
[2017-08-09] MEDS ORDERED: IBUP-1114 PO (07:50)
[2017-08-09] MEDS ORDERED: PRENTAB9 PO (07:50)
[2017-08-09] MEDS: PRENATAL VITAMINS CHEWABLE TABLET PO SCH (08:09)
== END 2017-08-09 10:20 | disposition home or self-care (01) | DRG 540 ==
LOC: M LDI 09:09 → M OBS 08-07 18:02
PROVIDERS: ADMIT Specialist; ATTEND Specialist
PROC: 3E0DXGC Introduction of Other Therapeutic Substance into Mouth and Pharynx, External Approach (ICD-10-PCS; 2017-08-06)
PROC: 3E033VJ Introduction of Other Hormone into Peripheral Vein, Percutaneous Approach (ICD-10-PCS; 2017-08-06)
PROC: 10D00Z1 Extraction of Products of Conception, Low, Open Approach (ICD-10-PCS; principal; 2017-08-07 15:40)
DX: O23.03 Infections of kidney in pregnancy, third trimester (principal); O62.0 Primary inadequate contractions; Z37.0 Single live birth; Z3A.39 39 weeks gestation of pregnancy; Z88.0 Allergy status to penicillin; Z88.8 Allergy status to other drugs, medicaments and biological substances; N11.9 Chronic tubulo-interstitial nephritis, unspecified

== ENCOUNTER 2017-12-23 18:41 | Emergency (ER) | payer OTHER ==
[2017-12-23] MEDS: NS 1,000 ML IV (20:05)
[2017-12-23 20:32] LABS: BASO # 0.1 10^3/uL (0.0-0.2); BASO % 0.3 % (0.0-1.0); EOS # 0.1 10^3/uL (0.0-0.50); EOS % 0.8 % (0.0-3.0); HEMATOCRIT 41.4 % (36.0-47.0); HEMOGLOBIN 14.1 g/dl (12.0-15.5); IMMATURE GRANULOCYTE % 0.5 % (0-3.0); LYMPH # 3.8 10^3/uL (1.5-4.5); LYMPH % 26.3 % (24.0-44.0); MEAN CORPUSCULAR HEMOGLOBIN 28.3 pg (27.0-33.0); MEAN CORPUSCULAR HGB CONC 34.1 g/dl (32.0-36.5); MONO # 0.9 10^3/uL (0.0-0.8); NEUTROPHILS # 9.5 10^3/uL (1.8-7.7); NEUTROPHILS % 66.1 % (36.0-66.0); PLATELET COUNT, AUTOMATED 372 10^3/uL (150-450); RED BLOOD COUNT 4.99 10^6/uL (4.00-5.40); RED CELL DISTRIBUTION WIDTH 14.7 % (11.5-14.5); WHITE BLOOD COUNT 14.4 10^3/uL (4.0-10.0)
[2017-12-23 21:01] LABS: ANION GAP 7 MEQ/L (8-16); BLOOD UREA NITROGEN 10 MG/DL (7-18); CALCIUM LEVEL 8.5 MG/DL (8.5-10.1); CARBON DIOXIDE LEVEL 24 MEQ/L (21-32); CHLORIDE LEVEL 107 MEQ/L (98-107); CREATININE FOR GFR 0.62 MG/DL (0.55-1.30); GLOMERULAR FILTRATION RATE > 60.0 (>60); GLUCOSE, FASTING 88 MG/DL (70-100); HCG, SERUM QUANTITATIVE 21610 MIU/ML; POTASSIUM SERUM 3.7 MEQ/L (3.5-5.1); SODIUM LEVEL 138 MEQ/L (136-145)
== END 2017-12-23 22:16 | disposition home or self-care (01) ==
LOC: M ED 18:41
DX: O03.4 Incomplete spontaneous abortion without complication (principal); F17.200 Nicotine dependence, unspecified, uncomplicated; Z87.59 Personal history of other complications of pregnancy, childbirth and the puerperium; Z88.1 Allergy status to other antibiotic agents; Z88.0 Allergy status to penicillin
CPT/HCPCS: 76801

== ENCOUNTER → 2017-12-26 | Outpatient (CLI) | payer OTHER ==
[2017-12-26 19:44] LABS: HCG, SERUM QUANTITATIVE 3479 MIU/ML
== END ==
LOC: M WUC 14:52
DX: O03.4 Incomplete spontaneous abortion without complication (principal)
CPT/HCPCS: 84702

== ENCOUNTER → 2018-04-09 | Outpatient (REF) | payer OTHER | LOC: M LAB REF 11:40 | DX: J02.9 Acute pharyngitis, unspecified (principal) ==

== ENCOUNTER → 2018-07-11 | Outpatient (CLI) | payer OTHER ==
[2018-07-11 17:13] LABS: BASO % 0.2 % (0.0-1.0); EOS # 0.1 10^3/uL (0.0-0.50); HEMATOCRIT 40.5 % (36.0-47.0); HEMOGLOBIN 13.4 g/dl (12.0-15.5); IMMATURE GRANULOCYTE % 0.4 % (0-3.0); LYMPH # 3.8 10^3/uL (1.5-4.5); LYMPH % 30.7 % (24.0-44.0); MEAN CORPUSCULAR HEMOGLOBIN 26.7 pg (27.0-33.0); MEAN CORPUSCULAR HGB CONC 33.1 g/dl (32.0-36.5); MEAN CORPUSCULAR VOLUME 80.7 fl (80.0-96.0); MONO # 0.8 10^3/uL (0.0-0.8); MONO % 6.4 % (0.0-5.0); NEUTROPHILS # 7.6 10^3/uL (1.8-7.7); NEUTROPHILS % 61.3 % (36.0-66.0); PLATELET COUNT, AUTOMATED 323 10^3/uL (150-450); RED BLOOD COUNT 5.02 10^6/uL (4.00-5.40); RED CELL DISTRIBUTION WIDTH 16.4 % (11.5-14.5); WHITE BLOOD COUNT 12.3 10^3/uL (4.0-10.0)
[2018-07-11 19:12] LABS: CHLAMYDIA DNA AMPLIFICATION NEGATIVE (NEGATIVE); GC DNA AMPLIFICATION NEGATIVE (NEGATIVE)
[2018-07-12 10:48] LABS: HBsAg Prenatal NEGATIVE (NEGATIVE); HIV 1&2 SCREEN CENTAUR NEGATIVE (NEGATIVE); RUBELLA IgG QUALITATIVE IMMUNE (IMMUNE)
[2018-07-12 10:48] LABS: HEPATITIS C VIRUS ABY INDEX < 0.0 INDEX (<0.8)
== END ==
LOC: M SMT 14:21
DX: Z34.81 Encounter for supervision of other normal pregnancy, first trimester (principal)
CPT/HCPCS: 86762

== ENCOUNTER → 2018-09-11 | Outpatient (CLI) | payer OTHER ==
[~2018-09-11] MED LIST changes: -ACET50TA PO; +IBUP-1114 PO; +IBUP80TA PO; +MAPA500T17 PO; +PERC5TAB12 PO; +PRENTAB9 PO
--- NOTE | 2018-09-12 04:28 | REP ---
Clinical: Anatomical evaluation. Comparison: 12/23/2017 . Findings: Examination demonstrates a single live intrauterine in footling breech presentation. motion is identified by technologist. Placenta is noted anterior/fundal and grade 1 without evidence for placenta previa or abruption. Amniotic fluid volume is normal. Cervix measures 3.7 cm in length and appears closed. No evidence for nuchal cord. Gestational age by current measurements 18 weeks 2 days with CAROLANN 02/10/2019 . FHR equals 157 beats per minute. BPD 4.1 cm 18 weeks 2 days HC 15.7 cm 18 weeks 4 days AC 13.2 cm 18 weeks 5 days FL 2.7 cm 18 weeks 1 day HL 2.7 cm 18 weeks 4 days HC/AC ratio 1.19 Estimated weight 1039 grams ( 51st percentile). Anatomical assessment demonstrates normal structures including cranium, choroid plexus, cavum, cerebellum/posterior fossa, lungs, diaphragm, stomach, cord insertion/three-vessel cord, kidneys/bladder, spine, and extremities. Impression: 1. Single live intrauterine in footling breech presentation demonstrating appropriate estimated weight for age. 2. Limited evaluation of the facial features and heart/ventricular outflow tracts may warrant reevaluation and follow-up. Electronically Signed by Bravo Lee MD 09/12/2018 04:20 A
== END ==
LOC: M SMT 10:36
PROVIDERS: ATTEND Specialist
DX: Z36.89 Encounter for other specified antenatal screening (principal); Z3A.18 18 weeks gestation of pregnancy

== ENCOUNTER → 2018-10-06 | Outpatient (CLI) | payer OTHER ==
[~2018-10-06] MED LIST changes: -MAPA500T17 PO; +MAPA500T2 PO
--- NOTE | 2018-10-06 13:16 | REP ---
FOLLOWUP OB ULTRASOUND: 10/06/2018. Comparison: 09/11/2018 Clinical history: Follow-up anatomy for incomplete evaluation of facial features in the heart/ventricular outflow tracts. Findings: Based on initial ultrasound she would be 21 weeks 6 days today. The EDC 02/10/2019. Today's study shows a single intrauterine gestation in a footling breech position. Cervix is 4.2 cm long and closed. There is an anterior fundal placenta with grade 1 maturation characteristics and no previa or abruption. Amniotic fluid volume is visually normal. biometry: BPD 5.4 cm 22 weeks 3 days HC 19.9 cm 22 weeks AC 18.1 cm 22 weeks 6 days FL 3.6 cm 21 weeks 2 days HL 3.7 cm 23 weeks. This gives average ultrasound age of 22 weeks 4 days with EDC 02/05/2019 based on this study. The estimated weight is 482 grams or 1 pound 1 ounce which is 56 percentile for dating based on initial ultrasound. Measurement ratios are all in the normal range. This represents normal interval growth. anatomic screening shows the cranial vault, lateral ventricles, choroid plexus, thalami, cavum septum pellucidum, cerebellum and cisterna magna, profile and facial views along and the lungs, all intact. The ventricular outflow tracts are now seen to advantage. The four-chamber heart view is still not optimally visualized with a footling breech presentation. The diaphragm, left-sided stomach bubble, cord insertion, three-vessel cord, kidneys and bladder, transverse, longitudinal views of the spine and the upper lower extremities are all grossly unremarkable. Impression: 1. Single intrauterine gestation in a footling breech presentation with closed 4.2 cm cervix, anterior fundal grade 1 placenta without previa or abruption. heart rate 147 and regular. 2. Dates show normal interval growth, EDC based on initial exam 02/10/2019.3. Anatomy screen shows ventricular outflow tracts and facial features adequately and unremarkable today. However, due to the footling breech presentation the four-chamber heart view is still not optimally visualized. Electronically Signed by Kashif Burrows MD 10/06/2018 04:56 P
== END ==
LOC: M SMT 09:18
PROVIDERS: ATTEND Advanced Practice Midwife
DX: Z36.9 Encounter for antenatal screening, unspecified (principal); Z3A.22 22 weeks gestation of pregnancy

== ENCOUNTER → 2018-11-07 | Outpatient (CLI) | payer OTHER ==
[2018-11-07 18:49] LABS: BASO % 0.2 % (0.0-1.0); EOS # 0.1 10^3/uL (0.0-0.50); EOS % 0.5 % (0.0-3.0); HEMATOCRIT 38.5 % (36.0-47.0); HEMOGLOBIN 12.8 g/dl (12.0-15.5); LYMPH # 2.4 10^3/uL (1.5-4.5); MEAN CORPUSCULAR HEMOGLOBIN 29.4 pg (27.0-33.0); MEAN CORPUSCULAR HGB CONC 33.2 g/dl (32.0-36.5); MEAN CORPUSCULAR VOLUME 88.5 fl (80.0-96.0); MONO # 0.7 10^3/uL (0.0-0.8); MONO % 4.5 % (0.0-5.0); NEUTROPHILS # 11.9 10^3/uL (1.8-7.7); NEUTROPHILS % 77.8 % (36.0-66.0); PLATELET COUNT, AUTOMATED 291 10^3/uL (150-450); RED BLOOD COUNT 4.35 10^6/uL (4.00-5.40); WHITE BLOOD COUNT 15.2 10^3/uL (4.0-10.0)
== END ==
LOC: M SMT 13:02
PROVIDERS: ATTEND Advanced Practice Midwife
DX: Z34.82 Encounter for supervision of other normal pregnancy, second trimester (principal)

== ENCOUNTER → 2018-11-27 | Outpatient (CLI) | payer OTHER ==
--- NOTE | 2018-11-27 19:32 | REP ---
Clinical: Anatomical evaluation. Comparison: 01/17/2019 . Findings: Examination demonstrates a single live intrauterine in cephalic presentation. motion is identified by technologist. Placenta is noted the anterior and grade grade I/II without evidence for placenta previa or abruption. Amniotic fluid volume is normal. Cervix measures 3.3 cm in length and appears closed. Nuchal cord cannot be excluded Gestational age by first US 29 weeks 2 days with CAROLANN 02/10/2019 . Gestational age by current measurements 28 weeks 5 days with CAROLANN 02/14/2019 . FHR equals 141 beats per minute. Estimated weight 1339 grams ( 38th percentile). Anatomical assessment demonstrates normal structures including cranium, choroid plexus, cavum, cerebellum/posterior fossa, facial features, lungs, diaphragm, stomach, three-vessel cord, kidneys/bladder, and extremities. Impression: Single live intrauterine in cephalic presentation demonstrating appropriate interval growth. Limited evaluation of the four-chamber heart is again noted. Electronically Signed by Bravo Lee MD 11/27/2018 07:23 P
== END ==
LOC: M SMT 09:56
PROVIDERS: ATTEND Specialist
DX: O99.342 Other mental disorders complicating pregnancy, second trimester (principal); Z3A.29 29 weeks gestation of pregnancy

== ENCOUNTER → 2018-12-25 | Outpatient (CLI) | payer OTHER ==
[~2018-12-25] MED LIST changes: -MULT1CHW39 PO; +MULT200T7 PO
--- NOTE | 2018-12-25 13:50 | REP ---
OB ULTRASOUND: Real-time sonographic evaluation of the gravid uterus is performed. There is a single living intrauterine gestation. Estimated gestational age 33 weeks 2 days, EDC 02/10/2019. Today's measurements indicate appropriate growth. BPD 79 mm = 31 weeks 6 days, 29th percentile HC 291 mm = 32 weeks 0 days, 31st percentile AC 296 mm = 33 weeks 4 days, 54th percentile Femur length 61 mm = 31 weeks 4 days, 24th percentile HC/AC ratio 0.98 within normal range. Estimated weight 2029 grams, 33rd percentile. heart rate 131 beats per minute. Amniotic fluid within normal limits, ELMER 8.6 within normal range of 8.2-24.6. S/D ratio 3.22 above normal range of 2.0 to 3.0. RI 0.69 within normal range of 0.59-0.75. Today's visualized anatomy includes upper lip, four chamber heart, stomach, three vessel cord, kidneys and bladder which are grossly unremarkable. position vertex. Placenta anterior with no previa. Electronically Signed by Jose Brady MD 12/25/2018 04:33 P
== END ==
LOC: M SMT 10:40
PROVIDERS: ATTEND Advanced Practice Midwife
DX: Z34.83 Encounter for supervision of other normal pregnancy, third trimester (principal); Z3A.34 34 weeks gestation of pregnancy

== ENCOUNTER → 2019-01-19 | Outpatient (REF) | payer OTHER | LOC: M LAB REF 17:12 | PROVIDERS: ATTEND Advanced Practice Midwife | DX: O47.03 False labor before 37 completed weeks of gestation, third trimester (principal); O34.219 Maternal care for unspecified type scar from previous cesarean delivery ==

== ENCOUNTER 2019-02-02 05:09 | Inpatient (IN) | payer OTHER ==
[~2019-02-02] VITALS: Ht 160 cm; Wt 92.8 kg
[2019-02-02] MEDS ORDERED: LR 1,000 ML IV ONE (05:15)
[2019-02-02] MEDS ORDERED: LR 1,000 ML IV SCH ×2 (05:15→09:45)
[2019-02-02] MEDS ORDERED: BICITRA 30ML SOLN UDC PO ONE (05:15)
[2019-02-02] MEDS ORDERED: LR 800 ML IV ONE (05:19)
[2019-02-02 05:57] LABS: HEMATOCRIT 37.5 % (36.0-47.0); HEMOGLOBIN 12.7 g/dl (12.0-15.5); MEAN CORPUSCULAR HEMOGLOBIN 28.3 pg (27.0-33.0); MEAN CORPUSCULAR HGB CONC 33.9 g/dl (32.0-36.5); MEAN CORPUSCULAR VOLUME 83.5 fl (80.0-96.0); PLATELET COUNT, AUTOMATED 276 10^3/uL (150-450); RED BLOOD COUNT 4.49 10^6/uL (4.00-5.40)
[2019-02-02] MEDS ORDERED: GENTAMICIN 100 MG in D5W 50 ML IV ONE (07:00)
[2019-02-02] MEDS ORDERED: CLINDAMYCIN 900 MG/50 ML PREMIX BAG As Ordered ONE (07:06)
[2019-02-02] MEDS ORDERED: GENTAMICIN 100 MG in APPROPRIATE DILUENT 1 EA IV ONE (07:15)
[2019-02-02] MEDS ORDERED: CLINDAMYCIN 900 MG in APPROPRIATE DILUENT 1 EA IV ONE (07:15)
[2019-02-02] MEDS ORDERED: METOCLOPRAMIDE INJ 10MG/2ML VIAL (J2765) IV PRN ×2 (07:48→09:45)
[2019-02-02] MEDS ORDERED: NALOXONE INJ 0.4 MG/1 ML VIAL (J2310) IV PRN ×2 (07:48)
[2019-02-02] MEDS ORDERED: ONDANSETRON 4MG/2ML VIAL (J2405) IV PRN ×3 (07:48→09:45)
[2019-02-02] MEDS ORDERED: NALBUPHINE HCL 10 MG/ML AMP (J2300) IV PRN (07:48)
[2019-02-02] MEDS ORDERED: MORPHINE PRES-FREE INJ 10 MG/10 ML VIAL (J2274) As Ordered ONE (07:51)
[2019-02-02] MEDS ORDERED: PROPOFOL 200 MG/20 ML VIAL As Ordered ONE (07:51)
[2019-02-02] MEDS ORDERED: OXYTOCIN INJ 10 UNITS/ML VIAL (J2590) As Ordered ONE (07:51)
[2019-02-02] MEDS ORDERED: BUPIVACAINE/DEXTROSE 0.75% 2 ML AMP As Ordered ONE (07:51)
[2019-02-02] MEDS ORDERED: ONDANSETRON 4MG/2ML VIAL (J2405) As Ordered ONE (08:36)
[2019-02-02] MEDS ORDERED: OXYTOCIN DRIP 30 UNITS in APPROPRIATE DILUENT 1 EA IV SCH (08:47)
[2019-02-02] MEDS: PRENATAL VITAMINS CHEWABLE TABLET PO SCH (09:00)
[2019-02-02] MEDS ORDERED: DOCUSATE SODIUM 100 MG CAP PO PRN (09:00)
[2019-02-02] MEDS ORDERED: MEASLES,MUMPS,RUBELLA VACCINE INJ (MMR-II) (90707) SC SCH (09:00)
[2019-02-02] MEDS ORDERED: PERCOCET 5MG/325MG TAB PO PRN ×2 (09:00→09:45)
[2019-02-02] MEDS ORDERED: RHOGAM 300 MCG (1500 IU) INJ (J2790) IM SCH (09:00)
[2019-02-02] MEDS ORDERED: MEPERIDINE INJ 25 MG/ML VIAL (J2175) IV PRN (09:45)
[2019-02-02] MEDS ORDERED: KETOROLAC 30 MG/ML VIAL (J1885) IV PRN (09:45)
[2019-02-02] MEDS ORDERED: fentaNYL 100 MCG/2 ML INJECTION (J3010) IV PRN (09:45)
[2019-02-02] MEDS ORDERED: KETOROLAC 30 MG/ML VIAL (J1885) As Ordered ONE (09:51)
[2019-02-02] MEDS ORDERED: OXYTOCIN 30 UNITS IN 0.9% NaCl 500ML IV BAG (J2590) As Ordered ONE (09:57)
[2019-02-02 11:02] VITALS: BP 126/67
[2019-02-02 11:34] VITALS: BP 117/75
[2019-02-02 12:45] VITALS: BP 117/84
[2019-02-02 14:00] VITALS: BP_SYST 117; BP_DIAS 82; BP_DIAS 84
[2019-02-02] MEDS: LR 1,000 ML IV SCH ×3 (14:30→23:58)
[2019-02-02] MEDS: KETOROLAC 30 MG/ML VIAL (J1885) IV SCH ×2 (15:52→21:10)
[2019-02-02 17:59] VITALS: BP 117/71
[2019-02-02] MEDS: diphenhydrAMINE INJ 50MG/ML VIAL (J1200) IV PRN ×2 (20:02→21:09)
--- NOTE | 2019-02-02 21:51 | RO ---
DATE OF PROCEDURE: 02/02/2019 PREOPERATIVE DIAGNOSES: 39 weeks, prior section times one. Undesired fertility. POSTOPERATIVE DIAGNOSES: 39 weeks, prior section times one. Undesired fertility. PROCEDURE: Repeat low transverse section and bilateral tubal ligation. SURGEON: Sim Nguyen MD CUT OFF SAWYER LOG: Sherrie Canales CNM ANESTHESIA: Spinal. ESTIMATED BLOOD LOSS: 600 mL. URINE OUTPUT: 300 mL IV FLUIDS: 1600 mL of lactated ringers (LR). FINDINGS: 6 pound 12 ounce female 3070 grams, Apgars 9 and 9, vertex. Normal uterus, fallopian tubes and ovaries. OPERATIVE SUMMARY: The patient was taken to the operating room where spinal anesthesia was induced. She was prepped and draped in sterile fashion in the supine position. Emery catheter was placed. Pfannenstiel skin incision was made with a scalpel and carried through to the fascia. The fascia was nicked and extended. The fascia was dissected off the rectus muscles. The rectus muscles were divided. The peritoneal cavity was entered. Bladder flap was created. A curvilinear incision was made in the lower uterine segment until clear fluid was noted. This was extended manually. The was delivered from the vertex position without difficulty. The cord was doubly clamped and cut. The infant was handed off to awaiting nurses. The placenta was expressed. The uterus exteriorized and cleared of clots and debris. Uterine incision was closed with #0 Vicryl in a running locking fashion. A second imbricated layer of #0 Vicryl was placed. The uterus was placed back in the abdominal cavity. Attention was turned to the fallopian tubes. The fallopian tubes were grasped with Jayton clamps in their mid portion. A window was created in the broad ligament. A segment of tube was secured with three ties of #3-0 chromic on the outside of the Elsie clamp. A segment of tube was excised and sent to pathology bilaterally. The uterus was placed back in the abdominal cavity. Peroneum was closed with #2-0 Vicryl in a running fashion. The fascia was closed with #0 Vicryl in a running fashion. The deep layer was irrigated and closed with #2-0 chromic. Skin was closed with #4-0 Monocryl subcuticular sutures. Sponge, lap and needle counts were correct. Sherrie Canales CNM assisted throughout the procedure. She helped create all area of the incision as well as hysterotomy. She helped with expulsion of the fetus and closure of all subsequent layers.
[2019-02-02 22:00] VITALS: BP 130/78
[2019-02-03 02:00] VITALS: BP 112/63
[2019-02-03] MEDS: KETOROLAC 30 MG/ML VIAL (J1885) IV SCH (03:14)
[2019-02-03 06:00] VITALS: BP 123/70
[2019-02-03 07:44] LABS: HEMATOCRIT 33.5 % (36.0-47.0); HEMOGLOBIN 11.1 g/dl (12.0-15.5); MEAN CORPUSCULAR HEMOGLOBIN 28.2 pg (27.0-33.0); MEAN CORPUSCULAR HGB CONC 33.1 g/dl (32.0-36.5); PLATELET COUNT, AUTOMATED 223 10^3/uL (150-450); RED BLOOD COUNT 3.94 10^6/uL (4.00-5.40); WHITE BLOOD COUNT 13.6 10^3/uL (4.0-10.0)
[2019-02-03 10:00] VITALS: BP 128/81
[2019-02-03] MEDS: PRENATAL VITAMINS CHEWABLE TABLET PO SCH (10:55)
[2019-02-03] MEDS: IBUPROFEN 800 MG TAB PO SCH ×2 (10:55→18:49)
[2019-02-03 14:00] VITALS: BP 126/69
[2019-02-03 18:00] VITALS: BP 133/86
[2019-02-03] MEDS: PERCOCET 5MG/325MG TAB PO PRN (18:50)
[2019-02-03 22:29] VITALS: BP 121/70
[2019-02-04] MEDS: PERCOCET 5MG/325MG TAB PO PRN (01:53)
[2019-02-04 02:05] VITALS: BP 131/86
[2019-02-04] MEDS: IBUPROFEN 800 MG TAB PO SCH ×2 (02:45→11:11)
[2019-02-04 06:02] VITALS: BP 124/65
[2019-02-04] MEDS: PRENATAL VITAMINS CHEWABLE TABLET PO SCH (08:25)
[2019-02-04] MEDS ORDERED: IBUP80TA PO (10:49)
[2019-02-04] MEDS ORDERED: COLA100C5 PO (10:49)
[2019-02-04] MEDS ORDERED: PERCOCET PO (10:49)
--- NOTE | 2019-02-04 11:23 | NUR ---
Discharge Summary Admission date: 02/02/19 Discharge date: 02/04/19 Admission diagnosis: history of prior , 39+ weeks EGA Discharge diagnosis: same; delivered Discharge medications: Percocet, Motrin, Colace Discharge summary: 33yo [id number] admitted on 02/02/19 for a scheduled elective repeat low transverse section and BTL. Intraoperative course was uncomplicated. Postoperative course was uncomplicated. On postoperative day #2, she was meeting all discharge criteria. She was ambulating without difficulty, voiding spontaneously, tolerating a regular diet, pain was well controlled, and lochia was decreasing/minimal. Vitals were normal and stable. Incision was c/d/i. Wound care instructions were reviewed. Pain, infectious, fever, and bleeding precautions reviewed. She is to follow up in 1-2 weeks for an incision check. Neel Morgan DO
== END 2019-02-04 12:35 | disposition home or self-care (01) | DRG 540 ==
LOC: M LDI 05:09 → M OBS 10:44
PROVIDERS: ADMIT Specialist; ATTEND Specialist
PROC: 0UB70ZZ Excision of Bilateral Fallopian Tubes, Open Approach (ICD-10-PCS; 2019-02-02)
PROC: 10D00Z1 Extraction of Products of Conception, Low, Open Approach (ICD-10-PCS; principal; 2019-02-02 07:30)
DX: O34.211 Maternal care for low transverse scar from previous cesarean delivery (principal); Z30.2 Encounter for sterilization; Z37.0 Single live birth; Z3A.39 39 weeks gestation of pregnancy

== ENCOUNTER 2022-09-07 14:04 | Emergency (ER) | payer OTHER ==
[~2022-09-07] VITALS: Ht 160 cm; Wt 81.8 kg
[~2022-09-07 14:04] MED LIST changes: +COLA100C5 PO; +PERCOCET PO
[2022-09-07 14:05] VITALS: BP 123/71
[2022-09-07] MEDS ORDERED: NYST50SS PO (15:22)
== END 2022-09-07 15:33 | disposition home or self-care (01) ==
LOC: M ED 14:04
DX: B37.9 Candidiasis, unspecified (principal); S90.221A Contusion of right lesser toe(s) with damage to nail, initial encounter; F17.200 Nicotine dependence, unspecified, uncomplicated; F32.A Depression, unspecified; F12.10 Cannabis abuse, uncomplicated; Z79.52 Long term (current) use of systemic steroids; Z79.899 Other long term (current) drug therapy

== ENCOUNTER → 2023-07-05 | Outpatient (CLI) | payer OTHER ==
[~2023-07-05] MED LIST changes: +NYST-38 PO
[2023-07-05 10:40] LABS: HEMATOCRIT 43.5 % (36.0-47.0); HEMOGLOBIN 14.5 g/dl (12.0-15.5); MEAN CORPUSCULAR HEMOGLOBIN 29.2 pg (27.0-33.0); MEAN CORPUSCULAR HGB CONC 33.3 g/dl (32.0-36.5); MEAN CORPUSCULAR VOLUME 87.5 fl (80.0-96.0); PLATELET COUNT, AUTOMATED 344 10^3/uL (150-450); RED BLOOD COUNT 4.97 10^6/uL (4.00-5.40); WHITE BLOOD COUNT 12.6 10^3/uL (4.0-10.0)
[2023-07-05 11:09] LABS: IRON (FE) 52 UG/DL (50-170); PERCENT SATURATION 16.9 % (13.2-45.0); TOTAL IRON BINDING CAPACITY 308 UG/DL (250-425)
[2023-07-05 11:12] LABS: HEMOGLOBIN A1c 4.8 % (4.0-6.0)
[2023-07-05 11:14] LABS: ALKALINE PHOSPHATASE 74 U/L (46-116); ALT/SGPT 12 U/L (7.0-40); AST/SGOT 9 U/L (<34); BILIRUBIN,TOTAL 0.4 MG/DL (0.3-1.2); BLOOD UREA NITROGEN 9 MG/DL (9-23); CALCIUM LEVEL 8.7 MG/DL (8.5-10.1); CARBON DIOXIDE LEVEL 28 MMOL/L (20-31); CHLORIDE LEVEL 106 MMOL/L (98-107); CHOLESTEROL LEVEL 180 MG/DL (<200); CHOLESTEROL RISK RATIO 5.17 (<5); GLOMERULAR FILTRATION RATE > 60.0 (>60); GLUCOSE, FASTING 91 MG/DL (60-100); HDL CHOLESTEROL 34.8 MG/DL (>40); LDL CHOLESTEROL 122.8 MG/DL (<100); NON-HDL-C 145.2 MG/DL; POTASSIUM SERUM 4.4 MMOL/L (3.5-5.1); SODIUM LEVEL 138 MMOL/L (136-145); TOTAL 25(OH) VITAMIN D 25.1 NG/ML (20.0-100.0); TOTAL PROTEIN 6.5 G/DL (5.7-8.2); TRIGLYCERIDES LEVEL 112 MG/DL (<150)
[2023-07-05 11:46] LABS: THYROID STIMULATING HORMONE 2.186 uIU/ML (0.55-4.78)
[2023-07-05 15:41] LABS: ALBUMIN 3.4 G/DL (3.2-5.2)
== END ==
LOC: M LAB 09:49 → M RAD 09:49
PROVIDERS: ATTEND Family Medicine
DX: I10 Essential (primary) hypertension (principal)

== ENCOUNTER 2024-04-17 18:23 | Emergency (ER) | payer OTHER ==
[~2024-04-17] VITALS: Ht 165.1 cm; Wt 90.7 kg
[2024-04-17] MEDS: KETOROLAC 30 MG/ML 1ML VIAL IM ONE (19:31)
[2024-04-17] MEDS: methocarbamoL 750 MG TAB PO ONE (19:31)
[2024-04-17] MEDS ORDERED: METH-1165 PO (20:07)
[2024-04-17] MEDS ORDERED: KETO10TAB PO (20:07)
[2024-04-17 20:25] VITALS: BP 126/60; TEMP 97.6; O2SAT 100
== END 2024-04-17 20:22 | disposition home or self-care (01) ==
LOC: M ED 18:23
DX: S13.4XXA Sprain of ligaments of cervical spine, initial encounter (principal); X58.XXXA Exposure to other specified factors, initial encounter; Z88.0 Allergy status to penicillin; Z88.1 Allergy status to other antibiotic agents; F17.200 Nicotine dependence, unspecified, uncomplicated; Z79.899 Other long term (current) drug therapy
CPT/HCPCS: 96372; 99283; J1885

== ENCOUNTER 2025-08-12 09:02 | Emergency (ER) | payer OTHER, SELFPAY ==
[~2025-08-12] VITALS: Ht 160 cm; Wt 86.5 kg
[~2025-08-12 09:02] MED LIST changes: +KETO10TAB PO; +METH-1165 PO; -MULT200T7 PO; +MULT200T9 PO
[2025-08-12] MEDS ORDERED: INDO50CA91 PO (12:09)
[2025-08-12 12:16] VITALS: BP 131/82; TEMP 96.7; O2SAT 97
== END 2025-08-12 12:18 | disposition home or self-care (01) ==
LOC: M ED 09:02
DX: M25.462 Effusion, left knee (principal); M25.562 Pain in left knee; K21.9 Gastro-esophageal reflux disease without esophagitis; Z88.0 Allergy status to penicillin; Z88.1 Allergy status to other antibiotic agents; Z79.1 Long term (current) use of non-steroidal anti-inflammatories (NSAID)